=== PATIENT | male | born 1930 | race Caucasian/White ===

== ENCOUNTER 2016-12-05 19:40 | Inpatient (IN) | payer MEDICARE, OTHER ==
[~2016-12-05] VITALS: Ht 182.9 cm; Wt 81.6 kg
[2016-12-05 19:40] VITALS: BP 100/63
[~2016-12-05 19:40] MED LIST: ASPIRIN CHILDRE80 MG; BENAZEPRIL20 M1 PO; GLUCOTROL10 M1 PO; KEFLEX500 MG PO; TERAZOSIN5 MG PO; VIT B; ZANTAC 300300 M1 PO; benzapril; glipizide; metformin
--- NOTE | 2016-12-05 19:50 | NUR ---
86/M BIBA C/O GENERALIZED WEAKNESS AND LOW B/P FROM HOME. DENIES N/V/D; AAOX4 WITH EVEN AND STEADY GAIT; LUNGS CLEAR BL; HR EVEN AND REGULAR; PT DENIES ANY FEVER, CP, SOB, OR COUGH AT THIS TIME; PATIENT STATES PAIN OF 0/10 AT THIS TIME; VSS; PATIENT POSITIONED FOR COMFORT; HOB ELEVATED; BEDRAILS UP X2; BED DOWN. ER MD MADE AWARE OF PT STATUS.
--- NOTE | 2016-12-05 19:51 | NUR ---
BIBA TO ER BED 2
--- NOTE | 2016-12-05 19:55 | NUR ---
Patient being evaluated by physician at bedside.
[2016-12-05] MEDS ORDERED: NACL 0.9% 1,000 ML IV ONE ×2 (20:04)
--- NOTE | 2016-12-05 20:47 | NUR ---
pt can nt recall home meds/dose at this time.
[2016-12-05] MEDS ORDERED: PIPERACILLIN/TAZOBACTAM 3.375 GM in DEXTROSE 5% 50 ML IV ONE (20:55)
[2016-12-05] MEDS ORDERED: PIPERACILLIN/TAZOBACTAM 3.375 GM VIAL IV ONE (21:03)
--- NOTE | 2016-12-05 21:31 | NUR ---
# 14 FR Urinary catheter inserted utilizing sterile technique. Immediate return of 50 ml YELLOW CLEAR urine noted. Urine sample collected and sent to lab. Pt tolerated procedure well.
--- NOTE | 2016-12-05 21:46 | NUR ---
REASSESSMENT OF PT BLOOD PRESSURE AT THIS TIME IS 105/56. TEMPERATURE ALSO NOTED AT 98.7F. DENIES PAIN AND DISCOMFORT AT THIS TIME.
[2016-12-05] MEDS ORDERED: NACL 0.9% 500 ML IV ONE (21:50)
[2016-12-05] MEDS ORDERED: ONDANSETRON 4 MG/2 ML VIAL IVP PRN (23:00)
[2016-12-05] MEDS ORDERED: ACETAMINOPHEN 325 MG TAB PO PRN (23:00)
[2016-12-05] MEDS ORDERED: HYDROcodone/APAP 5/325 MG 1 TAB TAB PO PRN (23:00)
--- NOTE | 2016-12-05 23:00 | NUR ---
Patient will be admitted to care of Dr Richardson. Admited to Telemetry. Will go to room 124B. Belongings list completed. Report to Freddy Dawson RN .
--- NOTE | 2016-12-05 23:10 | NUR ---
Admitted from E.. with chief complaint of GENERALIZED WEAKNESS. AN 86 y/o. Male. ALERT AWAKE ORIENTED X3 WITH CONFUSION AT TIMES. INITIAL ASSESSMENT DONE. NO S/S OF RESPIRATORY DISTRESS OR SOB NOTED. NO C/O PAIN OR ANY DISCOMFORT AT THIS TIME. SKIN IS INTACT CLEAN DRY AND WARM TO TOUCH. OLD DRY SCAB NOTED ON THE RIGHT ELBOW. PLAN OF CARE REVIEWED TO PT AND VERBALIZED UNDERSTANDING AND NEED TO BE REINFORCED. oriented to call light, bed, phone,television, bathroom, smoking policy, visiting hours, procedures, ID bracelet on. Belongings list checked. CALL LIGHT WITHIN REACH. WILL CONTINUE TO MONITOR.
[2016-12-06] VITALS: BP 133/78
[2016-12-06] MEDS: NACL 0.9% 1,000 ML IV SCH ×3 (00:07→20:41)
--- NOTE | 2016-12-06 00:46 | NUR ---
PT IS SLEEPING RIGHT NOW BUT EASILY AROUSABLE. NO S/S OF ANY DISCOMFORT AT THIS TIME. ALL NEEDS ARE ATTENDED. CALL LIGHT WITHIN REACH. WILL CONTINUE TO MONITOR.
[2016-12-06 04:00] VITALS: BP 129/75
--- NOTE | 2016-12-06 05:45 | NUR ---
AM CARE RENDERED. BED LINEN CHANGED. INSTRUCTED PT TO REPOSITION. KEPT CLEAN AND DRY. CALL LIGHT WITHIN REACH. WILL CONTINUE TO MONITOR.
--- NOTE | 2016-12-06 07:30 | NUR ---
PT HAS NO S/S OF ANY DISCOMFORT. PLAN OF CARE ENDORSED TO KAYLA POLK AT BEDSIDE FOR CONTINUITY OF CARE.
--- NOTE | 2016-12-06 07:30 | NUR ---
RECEIVED PT RESTING COMFORTABLY IN BED; AAOX4, ABLE TO VERBALIZE NEEDS. PT DENIES ANY SOB, CP; NO S/S ACUTE DISTRESS AT THIS TIME. ROUTINE/PLAN OF CARE DISCUSSED AND REVIEWED, PT VERBALIZES UNDERSTANDING AND COMPLIANCE. IVF INFUSING WELL TO LEFT HAND, SITE ASYMPTOMATIC. SAFETY PRECAUTIONS OBSERVED AND MAINTAINED. CALL LIGHT IN REACH. WILL CONTINUE TO MONITOR.
[2016-12-06 08:00] VITALS: BP 141/78
[2016-12-06] MEDS ORDERED: DOCUSATE SODIUM 100 MG GELCAP PO SCH (09:00)
[2016-12-06] MEDS: SACCHAROMYCES 250 MG CAP PO SCH ×2 (09:08→20:31)
--- NOTE | 2016-12-06 09:10 | NUR ---
VSS. ADMINISTERED ROUTINE MEDS ORDERED WITH EDUCATION, PT TOLERATED WELL. MINIMAL ASSISTANCE WITH ADLs. WILL CONTINUE TO MONITOR.
[2016-12-06] MEDS ORDERED: MAG SULF 2000 MG/WATER PREMIX 50 ML IV SCH ×2 (09:19→14:43)
[2016-12-06] MEDS ORDERED: DEXTROSE 50% 50 ML SYR IVP PRN (09:45)
--- NOTE | 2016-12-06 10:05 | NUR ---
DISCUSSED PT CONDITION AND PLAN OF CARE WITH DR WATKINS AND DR GOMEZ, NEW ORDERS ACKNOWLEDGED AND CARRIED OUT. MARYCRUZER ADMINISTERED ORDERED WITH EDUCATION. FAMILY MEMBER AT BEDSIDE. WILL CONTINUE TO MONITOR.
[2016-12-06] MEDS: INSULIN ASPART SLIDING SCALE 100 UNITS/ML VIAL SUBQ PRN ×2 (11:37→21:14)
[2016-12-06] MEDS: BLOOD GLUCOSE MONITORING 1 DEV DEV FS SCH ×3 (11:37→20:41)
[2016-12-06 12:00] VITALS: BP 135/62
--- NOTE | 2016-12-06 12:00 | NUR ---
VSS. FAMILY MEMBER AT BEDSIDE. NO S/S DISTRESS
--- NOTE | 2016-12-06 14:00 | NUR ---
ASSISTED PT WITH GOWN AND LINEN CHANGE. CONDITION REMAINS STABLE. FAMILY MEMBERS AT BEDSIDE.
[2016-12-06] MEDS ORDERED: SKINTEGRITY HYDROGEL TP SCH (14:01)
[2016-12-06] MEDS ORDERED: LIPITOR40 MG PO (15:57)
[2016-12-06] MEDS ORDERED: CASODEX50 MG PO (15:57)
[2016-12-06] MEDS ORDERED: TERAZOSIN HCL PO (15:57)
[2016-12-06] MEDS ORDERED: ASPIR 8181 MG PO (15:57)
[2016-12-06] MEDS ORDERED: BENAZEPRIL HYDR20 MG PO (15:57)
[2016-12-06] MEDS ORDERED: RANITIDINE HCL300 M2 PO (15:57)
[2016-12-06] MEDS ORDERED: FLOMAX0.4 MG PO (15:57)
[2016-12-06 16:00] VITALS: BP 126/69
--- NOTE | 2016-12-06 16:29 | NUR ---
PT TAKEN TO CT VIA WHEELCHAIR AT THIS TIME IN STABLE CONDITION. Addendum: 12/06/16 at 1649 by Princess Koch RN ADD TO ENTRY: APAP PO GIVEN FOR C/O HEADACHE, SEE PAIN ASSESSMENT.
--- NOTE | 2016-12-06 16:45 | NUR ---
PT RETURNED FROM CT, REMAINS IN STABLE CONDITION.
--- NOTE | 2016-12-06 18:10 | NUR ---
[facility] CALLED IN RESULTS OF HEAD CT, NOTIFIED DR SELLERS, NO FURTHER ORDERS AT THIS TIME. PT IN STABLE CONDITION.
--- NOTE | 2016-12-06 19:19 | NUR ---
CONDITION REMAINS STABLE; ENDORSED PLAN OF CARE TO WEB PRODUCER RN.
--- NOTE | 2016-12-06 19:25 | NUR ---
RECEIVED REPORT FROM DAYSHIFT RN FOR CONTINUITY OF CARE. PATIENT IS A&OX3/4, FORGETFUL AT TIMES. SHIFT ASSESSMENT DONE, VS TAKEN. PATIENT IS STABLE. NO S/S OF RESPIRATORY DISTRESS NOTED ON ROOM AIR. PATIENT DENIES PAIN. IV TO LT HAND 18 GAUGE PATENT AND FLUSHED. URINAL AT BEDSIDE. PT HAS ABRASION TO RT ELBOW AND DIABETIC ULCER TO LT SECOND TOE. SAFETY/ FALL PRECAUTIONS ENFORCED. CALL LIGHT PLACED WITHIN REACH. WILL CONTINUE TO MONITOR.
[2016-12-06 19:58] VITALS: BP 144/61
[2016-12-06] MEDS: TAMSULOSIN 0.4 MG CAP PO SCH (20:31)
[2016-12-06] MEDS: DOCUSATE SODIUM 100 MG GELCAP PO SCH (20:31)
--- NOTE | 2016-12-06 20:31 | NUR ---
DUE MEDICATIONS ADMINISTERED, TOLERATED WELL. PATIENT UP TO USE RESTROOM, RETURNED TO BED AND MADE COMFORTABLE. CALL LIGHT WITHIN REACH.
--- NOTE | 2016-12-06 20:41 | NUR ---
PT REFUSING INSULIN PER MD ORDER, STATES THAT "HE DOESN'T WANT TO START INSULIN." EDUCATED PATIENT, STILL REFUSED. WILL FOLLOW UP WITH MD.
[2016-12-06] MEDS ORDERED: MAGNESIUM OXIDE 400 MG TAB PO SCH (21:00)
--- NOTE | 2016-12-06 21:15 | NUR ---
SPOKE WITH DR. GOMEZ REGARDING VENOUS/ARTERIAL DOPPLER RESULTS, MD TO GIVE ORDERS. ALSO INFORMED HER OF PT REFUSING INSULIN.
--- NOTE | 2016-12-06 21:30 | NUR ---
PT USED URINAL AND SPILLED SOME ON BED AND FLOOR, CLEANED UP PT AND CHANGED LINENS. CALL LIGHT WITHIN REACH.
[2016-12-06] MEDS ORDERED: HEPARIN PER PHARMACY MC PRN (23:05)
[2016-12-06] MEDS ORDERED: hePARIN / DEXT 5% PREMIX 250 ML IV SCH (23:05)
--- NOTE | 2016-12-06 23:56 | NUR ---
VS TAKEN, STABLE. EMPTIED 700 OUT OF URINAL.
[2016-12-07] VITALS: BP 120/56
--- NOTE | 2016-12-07 01:08 | NUR ---
INITIATED HEPARIN PROTOCOL PER MD ORDER.
--- NOTE | 2016-12-07 01:32 | NUR ---
PT GOT U TO USE URINAL, IV ACCIDENTLY DISLODGED CANNULA INTACT. NEW IV LINE INSERTION TO LT FOREARM 22 GAUGE PATENT AND NOW INFUSING HEPARIN DRIP.
[2016-12-07 04:00] VITALS: BP 153/79
--- NOTE | 2016-12-07 04:07 | NUR ---
VS TAKEN, STABLE. PT UP TO USE URINAL AND PERFORM AM CARE. BED LINENS AND GOWN CHANGED. CALL LIGHT WITHIN REACH.
[2016-12-07] MEDS: BLOOD GLUCOSE MONITORING 1 DEV DEV FS SCH ×4 (05:55→20:38)
--- NOTE | 2016-12-07 06:07 | NUR ---
BLOOD SUGAR 190, ADMINISTERED INSULIN PER MD ORDER.
[2016-12-07] MEDS: INSULIN ASPART SLIDING SCALE 100 UNITS/ML VIAL SUBQ PRN ×4 (06:10→21:54)
--- NOTE | 2016-12-07 07:30 | NUR ---
RECEIVED ON BED AAOX3-4 WITH PERIODS OF FORGETFULNESS. NO SOB NOTED, ON ROOM AIR WITH 97% O2 SATS. NO C/O PAIN AT THIS TIME. IV TO LT WRIST PATENT AND INTACT, HEPARIN DRIP ON GOING. PT ACCIDENTALLY PULLED OUT IV ON RT FOREARM. CHEST, DIMINISHED AIR ENTRY TO THE BASES. ABDOMEN SOFT, BOWEL SOUNDS PRESENT. PT AMBUALTORY TO THE BATHROOM WITH HELP. INSTRUCTED PT TO CALL FOR ASSISTANCE, CALL LIGHT WITHIN REACH, BED ALARM ON AND ON LOW POSITION. PT VERBALIZED PARTIAL UNDERSTANDING.
--- NOTE | 2016-12-07 07:34 | NUR ---
ENDORSED PATIENT TO ANIA RN FOR CONTINUITY OF CARE, PATIENT IS STABLE.
[2016-12-07 08:00] VITALS: BP 140/79
[2016-12-07] MEDS: BICALUTAMIDE 50 MG TAB PO SCH (09:00)
[2016-12-07] MEDS: BENAZEPRIL 20 MG TAB PO SCH (09:40)
[2016-12-07] MEDS: SACCHAROMYCES 250 MG CAP PO SCH ×2 (09:40→20:34)
[2016-12-07] MEDS: SKINTEGRITY HYDROGEL TP SCH (09:40)
[2016-12-07] MEDS: DOCUSATE SODIUM 100 MG GELCAP PO SCH ×2 (09:40→20:34)
[2016-12-07] MEDS: TERAZOSIN 5 MG CAP PO SCH (09:41)
[2016-12-07] MEDS: FAMOTIDINE 20 MG TAB PO SCH (09:41)
[2016-12-07] MEDS: MULTIVITAMIN/MINERALS 1 TAB PO SCH (09:41)
[2016-12-07] MEDS: ECOTRIN 81 MG TABEC PO SCH (09:41)
--- NOTE | 2016-12-07 09:47 | NUR ---
WOUND CARE NOTES: UNABLE TO SEE PATIENT AT THIS TIME, PODIATRY CHANGED THE DRESSING THIS MORNING. WILL FOLLOW UP.
--- NOTE | 2016-12-07 10:04 | NUR ---
PATIENT HAS BEEN SCREENED AND CATEGORIZED HIGH NUTRITION RISK. PATIENT WILL BE SEEN WITHIN 1-2 DAYS OF ADMISSION. 12/06/16-12/07/[address]
[2016-12-07 12:00] VITALS: BP 112/80
--- NOTE | 2016-12-07 12:15 | NUR ---
CM NOTE PER GEOSCIENCE PROFESSOR GERALDO EXT [id number], REVIEWS SHOULD ONLY BE SENT TO [facility] AND NOT TO [facility]. INITIAL REVIEW SENT TO [facility] FAX# [phone] ATTN: WINSTON MARCH # [phone]
[2016-12-07] MEDS: NACL 0.9% 1,000 ML IV SCH (12:27)
--- NOTE | 2016-12-07 14:56 | NUR ---
CM NOTE: SPOKE WITH GLORIA MARCH OF [facility] PH# [phone] AND SHE SAID SHE HAS SPOKEN WITH [facility] AND THAT [facility] WILL CALL PATIENT WHEN PATIENT IS DISCHARGED TO START PHYSICAL THERAPY, [facility] PH# [phone]. HOME HEALTH FOR PT AUTH# [id number]. GLORIA MARCH ALSO SAID THAT FWW WILL BE DELIVERED TO THE PATIENT IN THE HOSPITAL AROUND 1800 TIME TODAY TO BE DELIVERED BY [facility] PH# [phone], FWW AUTH# [id number]. CHARGE NURSE DARNELL ACUNA 3017 AWARE.
--- NOTE | 2016-12-07 15:24 | NUR ---
12/07/16 RD INITIAL ASSESSMENT COMPLETED PLEASE REFER TO NUTRITION ASSESSMENT UNDER CARE ACTIVITY FOR ESTIMATED NUTRITIONAL NEEDS. RD RECOMMENDATIONS: 1. CONTINUE CCHO 60 GM MECHANICAL SOFT DIET TOLERATED PER MD 2. RD TO ADD DIET HEALTH SHAKES TID FOR ADDITIONAL 600 KCAL AND 21 GM PROTEIN TO HELP PT MEET ESTIMATED KCAL AND PROTEIN NEEDS 3. ENCOURAGE INCREASED PO INTAKES 4. RD WILL F/U 3-5 DAYS; MODERATE RISK. ABDOUL HENDERSON RD
[2016-12-07 16:00] VITALS: BP 152/92
--- NOTE | 2016-12-07 16:29 | NUR ---
FWW DELIVERED AT BEDSIDE.
[2016-12-07] MEDS: RIVAROXABAN 15 MG TAB PO SCH (18:16)
--- NOTE | 2016-12-07 18:16 | NUR ---
HEPARIN DRIP DISCONTINUED ORDERED. XARELTO PO GIVEN.
--- NOTE | 2016-12-07 19:00 | NUR ---
PT AWAKE. NO SOB NOTED. NO COMPLAINTS MADE. ENDORSED TO NEXT SHIFT NURSE FOR CONTINUITY OF CARE.
--- NOTE | 2016-12-07 19:34 | NUR ---
RECEIVED REPORT FROM ANIA POLK FOR CONTINUITY OF CARE. PATIENT IS A&OX3, FORGETFUL, BUT CURRENTLY AWAKE AND EATING DINNER, GOOD APPETITE. SHIFT ASSESSMENT DONE, VS TAKEN. PATIENT IS STABLE AT THIS TIME. NO S/S OF RESPIRATORY DISTRESS NOTED ON ROOM AIR. PATIENT STATES TOLERABLE HEADACHE AT THIS TIME. IV TO LT HAND 22 GAUGE GAUGE PATENT AND FLUSHED AND IV TO LT FA 22 GAUGE PATENT AND INFUSING FLUIDS WELL. URINAL AT BEDSIDE. PT HAS ABRASION TO RT ELBOW AND DIABETIC ULCER TO LT SECOND TOE, DRESSING INTACT. SAFETY/ FALL PRECAUTIONS ENFORCED, WALKER AT BEDSIDE. CALL LIGHT PLACED WITHIN REACH. WILL CONTINUE TO MONITOR.
[2016-12-07 20:00] VITALS: BP 98/53
[2016-12-07] MEDS: TAMSULOSIN 0.4 MG CAP PO SCH (20:34)
--- NOTE | 2016-12-07 20:38 | NUR ---
BLOOD SUGAR 192, WILL ADMINISTER INSULIN PER MD ORDER. DUE MEDS GIVEN, TOLERATED WELL.
--- NOTE | 2016-12-07 21:54 | NUR ---
INSULIN GIVEN PER MD ORDER, PATIENT IS NOW SLEEPING. CALL LIGHT WITHIN REACH.
--- NOTE | 2016-12-07 23:52 | NUR ---
VS TAKEN, STABLE. PT UP TO USE BATHROOM. NOW BACK IN BED SLEEPING. NO S/S OF DISTRESS NOTED.
[2016-12-08] VITALS: BP 136/91
[2016-12-08] MEDS: NACL 0.9% 1,000 ML IV SCH ×2 (00:52→12:23)
--- NOTE | 2016-12-08 01:54 | NUR ---
PT USED URINAL, 300 ML OUTPUT. CALL LIGHT WITHIN REACH.
[2016-12-08 04:00] VITALS: BP 156/85
--- NOTE | 2016-12-08 04:15 | NUR ---
VS TAKEN, STABLE. PT IS SLEEPING. NO S/S OF DISTRESS OR DISCOMFORT NOTED. CALL LIGHT PLACED WITHIN REACH.
[2016-12-08] MEDS: BLOOD GLUCOSE MONITORING 1 DEV DEV FS SCH ×3 (06:15→16:38)
--- NOTE | 2016-12-08 06:16 | NUR ---
BLOOD SUGAR TAKEN, 169, WILL ADMINISTER INSULIN PER MD ORDER.
[2016-12-08] MEDS: INSULIN ASPART SLIDING SCALE 100 UNITS/ML VIAL SUBQ PRN ×3 (06:42→18:07)
--- NOTE | 2016-12-08 07:14 | NUR ---
RECEIVED REPORT FROM NIGHT NURSE , PT IS AAOX3, IV TO LEFT FA 22G WITH NS AT 80 ML/HR INFUSING WELL, LEFT HAND 22G SALINE LOCK PATENT AND INTACT , LEFT SECOND TOE DIABETIC ULCER, RIGHT ELBOW ABRASION , INITIAL ASSESSMENT COMPLETES, REVIEWED PLAN OF CAR WITH PT, PT VERBALIZED UNDERSTANDING, ORIENTED PT TO ROOM AND ENVIRONMENT, CALL LIGHT WITHIN REACH, WILL CONTINUE TO MONITOR.
--- NOTE | 2016-12-08 07:14 | NUR ---
ENDORSED PATIENT TO DAYSHIFT RN FOR CONTINUITY OF CARE. PATIENT IS STABLE
[2016-12-08 08:00] VITALS: BP 140/63
[2016-12-08] MEDS: RIVAROXABAN 15 MG TAB PO SCH ×2 (08:53→16:37)
[2016-12-08] MEDS: TERAZOSIN 5 MG CAP PO SCH (08:54)
[2016-12-08] MEDS: ECOTRIN 81 MG TABEC PO SCH (08:54)
[2016-12-08] MEDS: BENAZEPRIL 20 MG TAB PO SCH (08:54)
[2016-12-08] MEDS: DOCUSATE SODIUM 100 MG GELCAP PO SCH (08:54)
[2016-12-08] MEDS: MULTIVITAMIN/MINERALS 1 TAB PO SCH (08:54)
[2016-12-08] MEDS: SACCHAROMYCES 250 MG CAP PO SCH (08:54)
--- NOTE | 2016-12-08 08:57 | NUR ---
DUE MEDICATIONS GIVEN, PT TOLERATED. PT CURRENTLY SITTING IN BED, CALL LIGHT WITHIN REACH. WILL CONTINUE TO MONITOR.
[2016-12-08] MEDS: BICALUTAMIDE 50 MG TAB PO SCH (08:59)
[2016-12-08] MEDS: SKINTEGRITY HYDROGEL TP SCH (09:03)
[2016-12-08] MEDS: FAMOTIDINE 20 MG TAB PO SCH (09:09)
--- NOTE | 2016-12-08 10:56 | NUR ---
CM NOTE CONCURRENT REVIEW SENT TO [facility] FAX# [phone] ATTN: WINSTON MARCH PH# [phone]
--- NOTE | 2016-12-08 11:15 | NUR ---
CHECKED IN ON PT PT CURRENTLY SLEEPING, NO S/S OF DISTRESS OR DISCOMFORT NOTE. CALL LIGHT WITHIN REACH. WILL CONTINUE TO MONITOR.
[2016-12-08 12:00] VITALS: BP 128/70
--- NOTE | 2016-12-08 12:28 | NUR ---
PT CURRENTLY HAVING LUNCH, SON AT BEDSIDE. CALL LIGHT WITHIN REACH. WILL CONTINUE TO MONITOR.
--- NOTE | 2016-12-08 14:01 | NUR ---
CHECKED IN ON PT. PT CURRENTLY VISITING WITH FAMILY. CALL LIGHT WITHIN REACH. WILL CONTINUE TO MONITOR.
[2016-12-08 16:00] VITALS: BP 114/57
--- NOTE | 2016-12-08 16:41 | NUR ---
DUE MEDICATIONS GIVEN. PT RESTING IN BED. ALL NEEDS MET, CALL LIGHT WITHIN REACH.
[2016-12-08] MEDS ORDERED: XARELTO20 MG PO (16:47)
[2016-12-08] MEDS ORDERED: XARELTO15 MG PO (16:47)
--- NOTE | 2016-12-08 17:41 | NUR ---
PT WAS STRAIGHT CATHETERIZED WITH 700ML OF YELLOW CLEAR URINE. PT TOLERATED WELL. MD NOTIFIED. DISCUSSED DISCHARGED PLAN WITH PT PT VERBALIZED UNDERSTANDING.
--- NOTE | 2016-12-08 18:02 | NUR ---
STEPHEN CATHETER WAS INSERTED PER MD ORDERS. PT WILL BE DISCHARGE WITH IT HOME. EDUCATED PT ON STEPHEN, PT VERBALIZED UNDERSTANDING.
--- NOTE | 2016-12-08 18:50 | NUR ---
PT SIGNED ALL DISCHARGE PAPERWORK, NEW PRESCRIPTION AND EDUCATED GIVEN, PT VERBALIZED UNDERSTANDING.WOUND PICTURES TAKEN. PT WAS DISCHARGED HOME WITH A STEPHEN CATHETER EDUCATION GIVEN TO PT AND BOTH VERBALIZED UNDERSTANDING. IVS REMOVED TIP INTACT, ALL ID BANDS REMOVED. ALL PERSONAL BELONGING WITH PT.
--- NOTE | 2016-12-08 19:00 | NUR ---
PT WAS WHEELED OUT TO FRONT LOBBY IN STABLE CONDITION
[2017-03-16] MEDS ORDERED: VANCOMYCIN1 GM/1001 IV (10:10)
[2017-03-18] MEDS ORDERED: LEVAQUIN750 MG PO (15:30)
[2017-03-18] MEDS ORDERED: BD LACTINEX1.4 MG PO (15:30)
[2017-03-18] MEDS ORDERED: CLEOCIN HCL300 MG PO (15:31)
== END 2016-12-08 19:00 | disposition home health service (06) | DRG 901 ==
LOC: MED 19:40 → MERGE 22:20 → MTU 22:20
PROVIDERS: ADMIT Student in an Organized Health Care Education/Training Program; ATTEND Student in an Organized Health Care Education/Training Program
PROC: 0JBR0ZZ Excision of Left Foot Subcutaneous Tissue and Fascia, Open Approach (ICD-10-PCS; principal; 2016-12-06)
DX: T46.5X1A Poisoning by other antihypertensive drugs, accidental (unintentional), initial encounter (principal); E43 Unspecified severe protein-calorie malnutrition; N39.0 Urinary tract infection, site not specified; Q25.46 Tortuous aortic arch; N13.30 Unspecified hydronephrosis; I82.411 Acute embolism and thrombosis of right femoral vein; G90.9 Disorder of the autonomic nervous system, unspecified; E11.621 Type 2 diabetes mellitus with foot ulcer; I95.89 Other hypotension; E83.42 Hypomagnesemia; E11.65 Type 2 diabetes mellitus with hyperglycemia; M20.42 Other hammer toe(s) (acquired), left foot; J32.2 Chronic ethmoidal sinusitis; E87.8 Other disorders of electrolyte and fluid balance, not elsewhere classified; E78.5 Hyperlipidemia, unspecified; K21.9 Gastro-esophageal reflux disease without esophagitis; I10 Essential (primary) hypertension; E02 Subclinical iodine-deficiency hypothyroidism; E11.51 Type 2 diabetes mellitus with diabetic peripheral angiopathy without gangrene; E83.51 Hypocalcemia; L97.529 Non-pressure chronic ulcer of other part of left foot with unspecified severity; I35.0 Nonrheumatic aortic (valve) stenosis; R31.9 Hematuria, unspecified; N32.0 Bladder-neck obstruction; Z79.899 Other long term (current) drug therapy; Z68.24 Body mass index [BMI] 24.0-24.9, adult; Z86.73 Personal history of transient ischemic attack (TIA), and cerebral infarction without residual deficits; Z85.46 Personal history of malignant neoplasm of prostate

== ENCOUNTER 2017-01-13 09:30 | Inpatient (IN) | payer OTHER ==
[~2017-01-13] VITALS: Ht 188 cm; Wt 98.9 kg
[~2017-01-13 09:30] MED LIST changes: +ASPIR 8181 MG PO; +BENAZEPRIL HYDR20 MG PO; +CASODEX50 MG PO; +FLOMAX0.4 MG PO; +LIPITOR40 MG PO; +RANITIDINE HCL300 M2 PO; +TERAZOSIN HCL PO; +XARELTO15 MG PO; +XARELTO20 MG PO
--- NOTE | 2017-01-13 09:30 | NUR ---
PATIENT BIBA TO ER BED 4.
[2017-01-13 09:52] VITALS: BP 188/57
--- NOTE | 2017-01-13 10:02 | NUR ---
86/M BIBA FROM HOME S/P FALL. C/O PAIN TO LOWER BACK. NO LOC. PAIN 06/10. LUNGS CLEAR BILAT. HR EVEN AND REGULAR. AAOX4. VSS. NO SIGNS OF DISTRESS.
[2017-01-13] MEDS ORDERED: fentaNYL 0.05 MG/ML VIAL IM ONE (10:05)
--- NOTE | 2017-01-13 10:05 | NUR ---
Patient being evaluated by physician at bedside.
[2017-01-13] MEDS ORDERED: NACL 0.9% 1,000 ML IV ONE (11:00)
[2017-01-13] MEDS ORDERED: POTASSIUM CHLORIDE 10 MEQ TABER PO ONE (11:00)
[2017-01-13] MEDS ORDERED: cefTRIAXone 1,000 MG VIAL ONE (11:38)
--- NOTE | 2017-01-13 12:36 | NUR ---
Patient will be admitted to care of DR MOLINA. Admited to MED SURG. Will go to room 107B. Belongings list completed. Report to KELI.
[2017-01-13 13:00] VITALS: BP 149/76
--- NOTE | 2017-01-13 13:00 | NUR ---
PATIENT ARRIVED FROM THE ER VIA GURNEY. PATIENT AWAKE, ALERT, ORIENTED AND AMBULATORY. PATIENTS STATES THAT HE USES A WALKER AT HOME. NO S/S OF DISTRESS NOTED. NO SOB. PATIENT BREATHING ON ROOM AIR. SKIN TEAR NOTED TO RIGHT AND LEFT FOREARM. IV LINE NOTED TO LEFT FOREARM. BED LOWERED WITH CALL LIGHT WITHIN REACH. WILL CONTINUE TO MONITOR
[2017-01-13] MEDS ORDERED: PNEUMOCOCCAL VACCINE 23 MCG/0.5 ML VIAL IMVAC PRN (13:30)
--- NOTE | 2017-01-13 14:35 | NUR ---
PT CURRENTLY SLEEPING. NO S/S OF DISTRESS OR DISCOMFORT NOTED. CALL LIGHT WITHIN REACH. WILL CONTINUE TO MONITOR.
[2017-01-13] MEDS ORDERED: MORPHINE SULFATE 2 MG/ML SYR IVP PRN (15:15)
[2017-01-13] MEDS ORDERED: MORPHINE SULFATE 4 MG/ML SYR IVP PRN (15:15)
[2017-01-13] MEDS ORDERED: ONDANSETRON 4 MG/2 ML VIAL IVP PRN (15:15)
[2017-01-13 16:00] VITALS: BP 135/68
--- NOTE | 2017-01-13 16:45 | NUR ---
CHECKED IN ON PT. ALL NEEDS MET. SON AT BEDSIDE. WILL CONTINUE TO MONITOR.
[2017-01-13] MEDS: BLOOD GLUCOSE MONITORING 1 DEV DEV FS SCH ×3 (16:55→20:46)
[2017-01-13] MEDS: INSULIN LISPRO SLIDING SCALE 100 UNITS/ML VIAL SUBQ PRN ×2 (17:52→20:43)
--- NOTE | 2017-01-13 19:10 | NUR ---
RECEIVED REPORT FROM FELICITAS ROCHE AT BEDSIDE. INITIAL ASSESSMENT COMPLETED. PT AAOX4. GENERALIZED WEAKNESS NOTICED. PT HAS IV TO LEFT HAND G 20 SL; ASYMPTOMATIC, PATENT AND INTACT. PT HAS A SKIN TEAR ON LEFT ARM COVERED WITH VERSATIL. ORIENTED PT TO ROOM AND SURROUNDINGS AND USE OF CALL LIGHT. SAFETY/FALL RISKS MEASURES IN PLACE. WILL CONTINUE TO MONITOR PT. BED ALARM ON.
--- NOTE | 2017-01-13 19:30 | NUR ---
ENDORSED PLAN OF CARE TO NIGHT NURSE. PT IN STABLE CONDITION.
[2017-01-13] MEDS: FAMOTIDINE 20 MG TAB PO SCH (20:36)
[2017-01-13] MEDS: ATORVASTATIN 20 MG TAB PO SCH (20:37)
--- NOTE | 2017-01-13 20:50 | NUR ---
PT TOLERATED 2100 MEDS WELL. PT STABLE. PT HAS SCDS ON. WILL CONTINUE TO MONITOR PT.
[2017-01-13] MEDS ORDERED: TAMSULOSIN 0.4 MG CAP PO SCH (21:00)
[2017-01-14] VITALS: BP 139/72
--- NOTE | 2017-01-14 00:15 | NUR ---
PT TAKEN FOR CT OF SPINE. PT STABLE.
--- NOTE | 2017-01-14 00:50 | NUR ---
PT BACK, PT RESTING IN BED COMFORTABLY. BED ALARM ON.
--- NOTE | 2017-01-14 02:30 | NUR ---
PT SLEEPING AT THIS TIME. NO SIGNS OF DISTRESS/DISCOMFORT NOTED. WILL CONTINUE TO MONITOR PT.
--- NOTE | 2017-01-14 03:50 | NUR ---
PT REQUESTING URINAL. PT VOIDED, PT BACK IN BED NOW. NO SIGNS OF DISCOMFORT NOTED. WILL CONTINUE TO MONITOR PT.
--- NOTE | 2017-01-14 05:40 | NUR ---
PT AWAKE, PT STATED THAT HE WANTS TO TAKE A BREAK FROM USING THE SCDS. WILL CONTINUE TO MONITOR PT.
--- NOTE | 2017-01-14 07:05 | NUR ---
ENDORSED PT IN STABLE CONDITION TO RN MICHELLE FOR CONTINUITY OF CARE.
--- NOTE | 2017-01-14 07:06 | NUR ---
PT ALERT AND RESPONSIVE X2 WITH PERIODS OF FORGETFULNESS. WITH O2 AT 2L/MIN VIA NC. NO SIGNS OF ACUTE DISTRESS. SKIN IS WARM AND DRY. NO SIGNS OF ANY GI DISCOMFORT. 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 ASSISTED ON URINARY FREQUENCY, KEPT CLEAN AND DRY. DENIES OF ANY PAIN AT THIS TIME. ALL NEEDS ATTENDED. CALL LIGHT WITHIN REACH.
[2017-01-14 08:00] VITALS: BP 128/66
[2017-01-14] MEDS: ECOTRIN 81 MG TABEC PO SCH (08:55)
[2017-01-14] MEDS: FAMOTIDINE 20 MG TAB PO SCH ×2 (08:56→20:30)
[2017-01-14] MEDS ORDERED: NON-FORMULARY ITEM (Ranitidine HCl (Zantac) 1 TAB) PO SCH (09:00)
[2017-01-14] MEDS ORDERED: TERAZOSIN 5 MG CAP PO SCH (09:00)
[2017-01-14] MEDS ORDERED: BENAZEPRIL 20 MG TAB PO SCH (09:00)
[2017-01-14] MEDS: BICALUTAMIDE 50 MG TAB PO SCH (09:01)
[2017-01-14] MEDS: RIVAROXABAN 10 MG TAB PO SCH (09:01)
--- NOTE | 2017-01-14 09:05 | NUR ---
PATIENT HAS BEEN SCREENED AND CATEGORIZED MODERATE NUTRITION RISK. PATIENT WILL BE SEEN WITHIN 3-5 DAYS OF ADMISSION. 01/16/17-01/18/[address]
--- NOTE | 2017-01-14 10:28 | NUR ---
CM NOTE INITIAL REVIEW FAXED TO [facility] / FAX# [phone], ATTN: WINSTON #[phone]
[2017-01-14] MEDS: BLOOD GLUCOSE MONITORING 1 DEV DEV FS SCH ×3 (10:34→20:36)
[2017-01-14] MEDS: INSULIN LISPRO SLIDING SCALE 100 UNITS/ML VIAL SUBQ PRN ×3 (10:36→20:38)
[2017-01-14] MEDS: ACETAMINOPHEN 325 MG TAB PO PRN (14:23)
[2017-01-14 15:22] VITALS: BP 88/48
--- NOTE | 2017-01-14 15:22 | NUR ---
NOTED PT'S BP DECREASED TO 70/42 LEFT ARM, RECHECKED ON THE RIGHT ARM BP 88/48. REPORTED TO DR. MOLINA, NEW ORDERS. RECEIVED. D/C ALL BP MEDS. START ON 1L BOLUS NS X1. NOTED AND CARRIED OUT.
[2017-01-14] MEDS ORDERED: NACL 0.9% 1,000 ML IV SCH (15:25)
--- NOTE | 2017-01-14 15:39 | NUR ---
ADDITIONAL ORDERS RECEIVED FROM DR. MOLINA, INSERT FC, LABS AND IMAGING TESTS. NOTED AND CARRIED OUT.
--- NOTE | 2017-01-14 16:00 | NUR ---
SS NOTE: I WAS INFORMED BY WALLACE SANTAMARIA THAT PT'S FAMILY WANTED TO SPEAK WITH ME. I MET WITH PT'S SON, KRUNAL MEAD ([phone]) AND PT'S , DAYANA. THEY STATED THAT THEY WOULD LIKE SNF PLACEMENT FOR PT DUE TO HIS FALLS AT HOME. I INFORMED THEM THAT PT WOULD HAVE TO HAVE A SKILLED NEED TO BE PLACED IN SHORT TERM SNF, THEY VERBALIZED UNDERSTANDING. KRUNAL ALSO STATED THAT PT WAS IN THE [facility] FOR 16 YEARS, I ADVISED HIM TO FOLLOW UP WITH [employer] TO SEE IF PT HAS ADDITIONAL BENEFITS WITH THEM. I ALSO ADVISED HIM TO APPLY FOR MEDI-MARY FOR PT IN CASE HE NEEDS RETIREMENT SNF PLACEMENT AND PROVIDED HIM WITH THE INFORMATION TO THE LOCAL MEDI-MARY OFFICE. HE REPORTED THAT PT WAS GETTING HIS CHEMO SHOTS ONCE EVERY 3 MONTHS AND IS NOW GETTING THEM ONCE EVERY 6 MONTHS. Addendum: 01/15/17 at 1116 by Yareli Miller SS CORRECTION: I WAS INFORMED BY FELICITAS MARTINEZ
--- NOTE | 2017-01-14 16:03 | NUR ---
PLACED STEPHEN CATHETER AND OBTAINED 150ML OF CLOUDY YELLOW URINE. CONTINUE TO MONITOR.
[2017-01-14 16:18] VITALS: BP 107/43
--- NOTE | 2017-01-14 16:18 | NUR ---
NOTED PT'S BP INCREASED TO 107/43. PT IS AWAKE ALERT AND RESPONSIVE, NO SIGNS OF ACUTE DISTRESS. DENIES OF ANY PAIN AT THSI TIME. CONTINUE TO MONITOR.
--- NOTE | 2017-01-14 18:52 | NUR ---
PT ALERT AND RESPONSIVE, NO SIGNS OF ACUTE DISTRESS. WILL ENDORSE TO ONCOMING CARBIDE TOOL MAKER NURSE FOR CONTINUITY OF CARE.
--- NOTE | 2017-01-14 19:26 | NUR ---
RECEIVED REPORT FROM MICHELLE RN FOR CONTINUITY OF CARE. PATIENT IS A&OX3, DISCUSSED PLAN OF CARE WITH PATIENT, VERBALIZED UNDERSTANDING. SHIFT ASSESSMENT DONE, VS TAKEN, STABLE. B/P 104/54. NO S/S OF RESPIRATORY DISTRESS NOTED ON ROOM AIR. PATIENT DENIES PAIN. LT ARM SKIN TEAR COVERED WITH DRY AND INTACT DRESSING. IV TO LT HAND 20 GAUGE PATENT AND FLUSHED. STEPHEN CATHETER IN PLACE DRAINING TO GRAVITY. SAFETY/FALL PRECAUTIONS ENFORCED. CALL LIGHT PLACED WITHIN REACH. FAMILY MEMBERS AT THE BEDSIDE, WILL CONTINUE TO MONITOR.
[2017-01-14 20:00] VITALS: BP 104/54
[2017-01-14] MEDS: ATORVASTATIN 20 MG TAB PO SCH (20:30)
--- NOTE | 2017-01-14 20:38 | NUR ---
DUE MEDICATIONS ADMINISTERED, TOLERATED WELL. BLOOD SUGAR 200, ADMINISTERED INSULIN PER MD ORDER. ASSISTED PATIENT TO REPOSITION SELF AND MADE COMFORTABLE. CALL LIGHT WITHIN REACH.
--- NOTE | 2017-01-14 23:56 | NUR ---
VS TAKEN, STABLE. PROVIDED PATIENT WITH BLANKET AND MADE COMFORTABLE.
[2017-01-15] VITALS: BP 127/67
--- NOTE | 2017-01-15 02:19 | NUR ---
EMPTIED STEPHEN BAG, 600 ML CLEAR CHINEDU URINE NOTED. PT IS SLEEPING. NO S/S OF DISTRESS OR DISCOMFORT NOTED. WILL CONTINUE TO MONITOR. Addendum: 01/15/17 at 0420 by Amy Lizarraga RN URINE IS CLOUDY.
--- NOTE | 2017-01-15 04:10 | NUR ---
EMPTIED STEPHEN CATHETER, 1100 ML URINE. PATIENT IS NOW SLEEPING, EASILY WAKES UP. CALL LIGHT WITHIN REACH.
--- NOTE | 2017-01-15 06:05 | NUR ---
PATIENT IS SLEEPING. NO S/S OF DISTRESS OR DISCOMFORT NOTED. WILL CONTINUE TO MONITOR.
[2017-01-15] MEDS: BLOOD GLUCOSE MONITORING 1 DEV DEV FS SCH ×4 (06:47→22:05)
[2017-01-15] MEDS: INSULIN LISPRO SLIDING SCALE 100 UNITS/ML VIAL SUBQ PRN ×3 (06:55→22:24)
--- NOTE | 2017-01-15 07:23 | NUR ---
ENDORSED PATIENT TO DIYA POLK FOR CONTINUITY OF CARE, PATIENT IS IN STABLE CONDITION.
[2017-01-15 08:00] VITALS: BP 86/43
[2017-01-15] MEDS: FAMOTIDINE 20 MG TAB PO SCH ×2 (09:23→21:58)
[2017-01-15] MEDS: ECOTRIN 81 MG TABEC PO SCH (09:23)
[2017-01-15] MEDS: BICALUTAMIDE 50 MG TAB PO SCH (09:23)
[2017-01-15] MEDS: RIVAROXABAN 10 MG TAB PO SCH (09:24)
--- NOTE | 2017-01-15 09:30 | NUR ---
ADMINISTERED ALL MORNING MEDS. PT TOLERATED IT WELL. NO COMPLAINTS AT THIS TIME. WILL CONTINUE TO MONITOR PT.
--- NOTE | 2017-01-15 12:00 | NUR ---
PT IS VISITING WITH SONS. LUNCH CAME. DIDN'T WANT FISH. ORDERED A TURKEY SANDWICH FOR PT. WILL CONTINUE TO MONITOR PT.
--- NOTE | 2017-01-15 12:02 | NUR ---
FAXED CONCURRENT REVIEW TO [facility] [phone] PHONE WINSTON [phone] PATRICIA [id number] Addendum: 01/15/17 at 1210 by Janette Montanez CM CORRECTION, FAXED TO [facility] [place].
--- NOTE | 2017-01-15 13:51 | NUR ---
PT IN THE RESTROOM. SON WAITING OUTSIDE THE DOOR. WILL CONTINUE TO MONITOR PT.
--- NOTE | 2017-01-15 14:00 | NUR ---
THE NUCLEAR MED NURSE CAME AND TOOK PT TO HAVE HIS BONE SCAN DONE. PROX TIME ABOUT 30-1HR. THE SONS LEFT.WOULD LIKE FOR ME TO CALL THEM WHEN PT GETS BACK. WILL DO.
--- NOTE | 2017-01-15 14:45 | NUR ---
PT BACK ON FLOOR. PT TOLERATED PROCEDURE WELL. CALLED THE SON TO LET HIM KNOW PT IS BACK. WILL CONTINUE TO MONITOR PT.
[2017-01-15 16:00] VITALS: BP 119/67
[2017-01-15] MEDS ORDERED: NACL 0.9% 1,000 ML IV SCH (16:05)
--- NOTE | 2017-01-15 16:20 | NUR ---
DR. MOLINA CAME AND SAW PT. ORDERED NS 1000MG BOLUS. NOT URINATING ENOUGH. ADMINISTERED AND WILL CONTINUE TO MONITOR HIM.
--- NOTE | 2017-01-15 17:00 | NUR ---
FAMILY VISITING W/ PATIENT. PT HAS NO COMPLAINTS. WILL CONTINUE TO MONITOR PT.
--- NOTE | 2017-01-15 19:15 | NUR ---
PT IS LYING IN POSITION. ALL FAMILY IS GONE. PT IS FEELING EMOTIONAL, OVERWHELMED. REMINDED HIM HE IS GOING HOME TOMORROW ONCE CULTURE SENSITIVITY RESULTS COME IN. ASSISTED HIM BACK TO NORMAL POSITION. ENDORSED PT TO THE NIGHTSHIFT NURSE IN STABLE CONDITION.
--- NOTE | 2017-01-15 19:16 | NUR ---
RECEIVED REPORT FROM DIYA POLK FOR CONTINUITY OF CARE. PATIENT IS A&OX3, DISCUSSED PLAN OF CARE WITH PATIENT AND SON AT BEDSIDE, ABLE TO VERBALIZE UNDERSTANDING. SHIFT ASSESSMENT DONE, VS TAKEN, STABLE. NO S/S OF RESPIRATORY DISTRESS ON ROOM AIR. PATIENT DENIES PAIN AT THIS TIME. LT ARM SKIN TEAR COVERED WITH DRESSING. IV TO LT HAND 20 GAUGE PATENT AND FLUSHED. STEPHEN CATHETER IN PLACE DRAINING CLOUDY YELLOW URINE TO GRAVITY. SAFETY/FALL PRECAUTIONS ENFORCED. BED ALARM ON AND PATIENT INSTRUCTED TO CALL FOR ASSISTANCE. PT REFUSED SCDS AT THIS TIME. FAMILY MEMBERS AT THE BEDSIDE. WILL CONTINUE TO MONITOR.
[2017-01-15 20:00] VITALS: BP 140/81
[2017-01-15] MEDS: ATORVASTATIN 20 MG TAB PO SCH (21:58)
--- NOTE | 2017-01-15 21:58 | NUR ---
DUE MEDICATIONS ADMINISTERED, TOLERATED WELL. BLOOD SUGAR 261, WILL ADMINISTER INSULIN. CHANGED DRESSING TO IV AND REINFORCED. CALL LIGHT WITHIN REACH.
--- NOTE | 2017-01-15 22:24 | NUR ---
INSULIN ADMINISTERED. REPOSITIONED PATIENT FOR COMFORT. CALL LIGHT WITHIN REACH.
[2017-01-16] VITALS: BP 142/76
--- NOTE | 2017-01-16 00:06 | NUR ---
VS TAKEN, STABLE. PATIENT DENIES PAIN. NO S/S OF DISTRESS NOTED. WILL CONTINUE TO MONITOR.
--- NOTE | 2017-01-16 02:00 | NUR ---
ASSISTED PATIENT TO REPOSITION HIMSELF IN BED. PATIENT IS NOW SLEEPING, NO S/S OF DISTRESS NOTED.
--- NOTE | 2017-01-16 03:58 | NUR ---
REPOSITIONED AND PROVIDED PATIENT WITH NEW LINENS. PT IS AWAKE WATCHING TV. CALL LIGHT WITHIN REACH.
--- NOTE | 2017-01-16 05:59 | NUR ---
BLOOD SUGAR 145, NO INSULIN COVERAGE NEEDED. PATIENT EXPRESSED THAT HE FEELS SAD, SAT AND TALKED WITH PATIENT. WILL CONTINUE TO MONITOR.
[2017-01-16] MEDS: BLOOD GLUCOSE MONITORING 1 DEV DEV FS SCH ×3 (06:30→16:32)
--- NOTE | 2017-01-16 07:15 | NUR ---
RECEIVED PATIENT REPORT AT BEDSIDE. PATIENT ASLEEP BUT EASILY AROUSABLE. NO S/S OF DISTRESS NOTED. STEPHEN CATHETER IN PLACE, DRAINING CLEAR YELLOW URINE. IV LINE NOTED TO THE LEFT HAND SALINE LOCKED. BED LOWERED WITH CALL LIGHT WITHIN REACH. WILL CONTINUE TO MONITOR
--- NOTE | 2017-01-16 07:24 | NUR ---
ENDORSED PATIENT TO KELI RN FOR CONTINUITY OF CARE, PATIENT IS IN STABLE CONDITION.
[2017-01-16 08:00] VITALS: BP 134/65
[2017-01-16] MEDS: ECOTRIN 81 MG TABEC PO SCH (08:59)
[2017-01-16] MEDS: FAMOTIDINE 20 MG TAB PO SCH (09:00)
[2017-01-16] MEDS: BICALUTAMIDE 50 MG TAB PO SCH (09:00)
[2017-01-16] MEDS: RIVAROXABAN 10 MG TAB PO SCH (09:01)
--- NOTE | 2017-01-16 10:57 | NUR ---
PATIENT RESTING COMFORTABLY IN BED. PATIENT'S SON PRESENT AT BEDSIDE. NO S/S OF DISTRESS NOTED
[2017-01-16] MEDS: INSULIN LISPRO SLIDING SCALE 100 UNITS/ML VIAL SUBQ PRN ×2 (11:51→17:43)
--- NOTE | 2017-01-16 15:52 | NUR ---
STEPHEN CATHETER DISCONTINUED. 250ML OF CLEAR YELLOW URINE OUTPUT NOTED. PATIENT TOLERATED WELL
[2017-01-16 16:00] VITALS: BP 114/69
[2017-01-16] MEDS ORDERED: KEFLEX250 MG PO (16:38)
--- NOTE | 2017-01-16 17:30 | NUR ---
PATIENT AMBULATED TO THE BATHROOM TO HAVE A BOWEL MOVEMENT
[2017-01-16] MEDS: ACETAMINOPHEN 325 MG TAB PO PRN (17:36)
--- NOTE | 2017-01-16 18:42 | NUR ---
PATIENT DISCHARGED TO HOME. DISCHARGE INSTRUCTIONS AND DISCHARGE PRESCRIPTIONS GIVEN. PATIENT VERBALIZED UNDERSTANDING. IV LINE DISCONTINUED. PATIENT LEFT WITH ALL HIS BELONGINGS AND DISCHARGE PAPERS. PATIENT LEFT IN STABLE CONDITION
--- NOTE | 2017-01-18 09:18 | NUR ---
SPOKE WITH WINSTON FROM [facility]. PATIENT NEEDS HOME HEALTH FOR PT. FAXED ORDER TO HER AT [phone] PHONE [phone]
--- NOTE | 2017-01-18 11:11 | NUR ---
SPOKE WITH WINSTON FROM [facility] [place]. THE HOME PT WILL BE BY [facility] PHONE [phone] AUTH [id number]. [facility] WILL CONTACT PATIENT.
[2017-03-16] MEDS ORDERED: VANCOMYCIN1 GM/1001 IV (10:10)
[2017-03-18] MEDS ORDERED: LEVAQUIN750 MG PO (15:30)
[2017-03-18] MEDS ORDERED: BD LACTINEX1.4 MG PO (15:30)
[2017-03-18] MEDS ORDERED: CLEOCIN HCL300 MG PO (15:31)
== END 2017-01-16 18:45 | disposition home health service (06) | DRG 690 ==
LOC: MED 09:30 → MTU 12:05
PROVIDERS: ADMIT Hospitalist; ATTEND Hospitalist
DX: N39.0 Urinary tract infection, site not specified (principal); I10 Essential (primary) hypertension; E11.9 Type 2 diabetes mellitus without complications; S30.0XXA Contusion of lower back and pelvis, initial encounter; M51.36 Other intervertebral disc degeneration, lumbar region; B96.89 Other specified bacterial agents as the cause of diseases classified elsewhere; W06.XXXA Fall from bed, initial encounter; Z79.82 Long term (current) use of aspirin; Z79.01 Long term (current) use of anticoagulants; Z79.899 Other long term (current) drug therapy; Z85.46 Personal history of malignant neoplasm of prostate; Z86.718 Personal history of other venous thrombosis and embolism; Z86.73 Personal history of transient ischemic attack (TIA), and cerebral infarction without residual deficits; Y93.89 Activity, other specified; Y92.89 Other specified places as the place of occurrence of the external cause; Y99.8 Other external cause status

== ENCOUNTER 2017-03-04 01:38 | Inpatient (IN) | payer OTHER ==
[~2017-03-04] VITALS: Ht 188 cm; Wt 80.7 kg
[~2017-03-04 01:38] MED LIST changes: +KEFLEX250 MG PO
--- NOTE | 2017-03-04 01:38 | NUR ---
BIBA TO ER BED 7
[2017-03-04 01:41] VITALS: BP 100/64
[2017-03-04] MEDS ORDERED: NACL 0.9% 1,000 ML IV ONE ×2 (01:45→02:00)
--- NOTE | 2017-03-04 01:45 | NUR ---
86 Y/O M BIBA C/O GEN WEAKNESS, ALOC.PATIENT CAN NOT WALK, HX OF PROSTATE CANCER
[2017-03-04] MEDS ORDERED: LOTENSIN20 MG PO (01:49)
[2017-03-04] MEDS ORDERED: HYTRIN PO (01:49)
[2017-03-04] MEDS ORDERED: FLOMAX0.4 MG PO (01:49)
[2017-03-04] MEDS ORDERED: NORCO 5/325 MG1 TAB PO (01:49)
--- NOTE | 2017-03-04 01:50 | NUR ---
Patient being evaluated by physician at bedside.
[2017-03-04] MEDS ORDERED: ONDANSETRON 4 MG/2 ML VIAL IVP ONE (02:00)
[2017-03-04] MEDS ORDERED: PIPERACILLIN/TAZOBACTAM 3.375 GM in DEXTROSE 5% 50 ML IV ONE (02:45)
[2017-03-04] MEDS ORDERED: ASPIRIN 81 MG TAB.CHEW PO ONE (02:45)
[2017-03-04] MEDS ORDERED: POTASSIUM CHL 40 MEQ/ D5-1/2NS 1,000 ML IV ONE (02:45)
[2017-03-04] MEDS ORDERED: LEVOFLOXACIN 500 MG/D5W PREMIX 100 ML IV ONE (02:45)
[2017-03-04] MEDS ORDERED: PIPERACILLIN/TAZOBACTAM 3.375 GM VIAL IV ONE (02:58)
[2017-03-04] MEDS ORDERED: ACETAMINOPHEN 325 MG TAB PO PRN (03:10)
[2017-03-04] MEDS ORDERED: ONDANSETRON 4 MG/2 ML VIAL IVP PRN (03:10)
[2017-03-04] MEDS ORDERED: HYDROcodone/APAP 5/325 MG 1 TAB TAB PO PRN (03:10)
[2017-03-04] MEDS ORDERED: DOCUSATE SODIUM 100 MG GELCAP PO PRN (03:10)
[2017-03-04] MEDS ORDERED: MORPHINE SULFATE 2 MG/ML SYR IVP PRN (03:10)
[2017-03-04] MEDS ORDERED: POTASSIUM CHLORIDE 40 MEQ, LIDOCAINE 1% 25 MG in NACL 0.9% 250 ML IV SCH (03:15)
[2017-03-04] MEDS ORDERED: hePARIN / DEXT 5% PREMIX 250 ML IV SCH (04:05)
[2017-03-04] MEDS ORDERED: HEPARIN PER PHARMACY MC PRN (04:05)
--- NOTE | 2017-03-04 04:15 | NUR ---
PT BACK FROM CT SCAN, SLEEPING, ON DIRECTOR OF [employer]THLET[employer], VSS.
--- NOTE | 2017-03-04 04:38 | NUR ---
Patient will be admitted to care of DR SHANKAR. Admited to TELEMETRY. Will go to [id number]. Belongings list completed. Report to FELICITAS NOEL.
--- NOTE | 2017-03-04 04:55 | NUR ---
PT TRASFERRED TO TELEMETRY, ROOM 123 B VIA GURNEY, NO S/S OF DISTRESS NOTED ON TRASFER.
--- NOTE | 2017-03-04 05:00 | NUR ---
PT ARRIVED ON UNIT IN STABLE CONDITION. NO SOB, NO SIGNS OF DISTRESS. VS STABLE ON ROOM AIR. IV TO RT AC, LT WRTIST BOTH 20G PATENT, ASYMPTOMATIC, INTACT, IVF RUNNING IN RT AC. PT HAS SCABS TO BLE, SKIN OTHERWISE INTACT. PT IS AOX4, AMBULATES WITH ASSIST. ORIENTED PT TO ROOM AND UNIT. PLAN OF CARE DISCUSSED WITH PT. SAFETY MEASURES IN PLACE. CALL LIGHT WITHIN REACH. WILL CONTINUE TO MONITOR.
[2017-03-04 05:14] VITALS: BP 119/63
[2017-03-04] MEDS: NACL 0.9% 1,000 ML IV SCH ×2 (05:44→13:15)
[2017-03-04] MEDS ORDERED: LIDOCAINE 1% 0 ML ONE (05:50)
--- NOTE | 2017-03-04 05:50 | NUR ---
UNABLE TO MIX POTASSIUM IV ORDER, WILL ENDORSE TO AM SHIFT TO OBTAIN FROM PHARMACY.
--- NOTE | 2017-03-04 06:06 | NUR ---
HEPARIN BOLUS GIVEN, AND DRIP STARTED PT TOLERATING WELL. NO SOB, NO SIGNS OF DISTRESS. IV SITES ASYMPTOMATIC, INTACT, PATENT, IVF AND HEPARIN RUNNING. PT DENIES PAIN AT THIS TIME. PLAN OF CARE DISCUSSED WITH PT. SAFETY MEASURES IN PLACE. CALL LIGHT WITHIN REACH. WILL CONTINUE TO MONITOR.
--- NOTE | 2017-03-04 06:34 | NUR ---
BLOOD SUGAR 231, WILL ENDORSE TO AM SHIFT TO HAVE MD OUT IN BLOOD SUGAR CHECKS ACHS, INSULIN AND D50 ORDERS.
--- NOTE | 2017-03-04 06:55 | NUR ---
MD SHANKAR VERBALLY MADE AWARE THAT PT NEEDS BLOOD SUGAR CHECKS, INSULIN, AND D50 ORDERS, MD ALSO MADE AWARE THAT I WAS UNABLE TO MIX AND GIVE POTASSIUM IV ORDER, AND THAT PT DOES NOT HAVE HIS DENTURES AND NEEDS A SOFT DIET. TO SEE PT.
--- NOTE | 2017-03-04 07:07 | NUR ---
SPOKE RASHMI KAPLAN IN PHARMACY AND MD SHANKAR, POTASSIUM IV ORDER CLARIFIED, TO CANCEL ORDER FROM 314 AND MOST RECENT ORDER STANDS.
[2017-03-04] MEDS ORDERED: ALBUTEROL SULFATE/IPRATROPIU 3 ML SOL IH PRN (07:10)
--- NOTE | 2017-03-04 07:21 | NUR ---
ENDORSED PT IN STABLE CONDITION TO FELICITAS MONTERO. ALL NEEDS HAVE BEEN MET AT THIS TIME.
--- NOTE | 2017-03-04 07:30 | NUR ---
RECEIVED PT FROM SADIE POLK. PT AWAKE, ALERT, AND ORIENTED. NO SIGNS OF DISTRESS. ON ROOM AIR. IV TO RT AC, LT WRTIST BOTH 20G PATENT, ASYMPTOMATIC, INTACT, IVF RUNNING IN RT AC. LT WRIST RUNNING HEPARIN DRIP AT 1500 UNITS/HR.PT HAS SCABS TO BLE AND OLD BRUISES TO LEFT UPPER EXTREMITIES . ORIENTED PT TO ROOM AND UNIT. PLAN OF CARE DISCUSSED WITH PT. SAFETY MEASURES IN PLACE. CALL LIGHT WITHIN REACH. WILL CONTINUE TO MONITOR.
[2017-03-04 08:00] VITALS: BP 131/71
[2017-03-04] MEDS ORDERED: FLUCONAZOLE 100 MG TAB PO SCH (08:00)
[2017-03-04] MEDS ORDERED: KCL 20 MEQ/WATER INJ PREMIX 200 ML IV SCH (08:00)
--- NOTE | 2017-03-04 08:45 | NUR ---
CM NOTE PER [employer] GERALDO EXT [phone], REVIEWS SHOULD BE SENT TO HEALTH SYSTEM. FAXED INITIAL REVIEW TO HEALTH SYSTEM FAX# [phone] WINSTON MARCH PH# [phone]
[2017-03-04] MEDS ORDERED: BENAZEPRIL 20 MG TAB PO SCH (09:00)
--- NOTE | 2017-03-04 09:00 | NUR ---
DUE MEDS GIVEN, TOLERATED WELL
[2017-03-04] MEDS: TERAZOSIN 5 MG CAP PO SCH (09:48)
[2017-03-04] MEDS: PANTOPRAZOLE 40 MG TABEC PO SCH (09:49)
[2017-03-04] MEDS: BICALUTAMIDE 50 MG TAB PO SCH (10:09)
--- NOTE | 2017-03-04 10:26 | NUR ---
PATIENT HAS BEEN SCREENED AND CATEGORIZED HIGH NUTRITION RISK. PATIENT WILL BE SEEN WITHIN 1-2 DAYS OF ADMISSION. 03/04/17-03/05/[address]
--- NOTE | 2017-03-04 11:07 | NUR ---
CRITICAL REPORT RECEIVED. TROPONIN 0.182. RESIDENT AWARE. NO NEW ORDER RECEIVED.
[2017-03-04 12:00] VITALS: BP 93/60
[2017-03-04] MEDS: PIPER/TAZO 2.25GM/D5W PREMIX 50 ML IV SCH ×2 (13:14→21:36)
[2017-03-04] MEDS ORDERED: MECLIZINE 25 MG TAB PO PRN (13:30)
--- NOTE | 2017-03-04 13:31 | NUR ---
CRITICAL LAB REPORT RECEIVED PTT 91.3, PROTOCOL INITIATED. DR. PETERSEN RESIDENT AWARE.
[2017-03-04] MEDS ORDERED: DEXTROSE 50% 50 ML SYR IVP PRN (13:40)
--- NOTE | 2017-03-04 15:30 | NUR ---
PT SLEEPING AT THIS TIME. NO S/S OF RESPIRATORY DISTRESS NOTED. WILL CONTINUE TO MONITOR.
--- NOTE | 2017-03-04 15:46 | NUR ---
03/04/17 RD INITIAL ASSESSMENT COMPLETED PLEASE REFER TO NUTRITION ASSESSMENT UNDER CARE ACTIVITY FOR ESTIMATED NUTRITIONAL NEEDS. 1. CONTINUE CARDIAC DIET 2. CONSIDER THERAPEUTIC DIET, 60 GM CONSISTENT CARBOHYDRATE DIET WITH MECHANICAL SOFT TEXTURE 3. RD TO FOLLOW-UP 2-3 DAYS; HIGH RISK ESTRELLA FARRIS, YADIRA
[2017-03-04 16:00] VITALS: BP 100/50
[2017-03-04] MEDS: BLOOD GLUCOSE MONITORING 1 DEV DEV FS SCH ×2 (16:41→21:36)
[2017-03-04] MEDS: INSULIN LISPRO SLIDING SCALE 100 UNITS/ML VIAL SUBQ PRN ×2 (16:41→21:22)
--- NOTE | 2017-03-04 17:30 | NUR ---
PT'S DAUGHTER AND PRESENT AT BEDSIDE. QUESTIONS ANSWERED. DR. PETERSEN IN TO ASSESS PT AT THIS TIME .
--- NOTE | 2017-03-04 18:00 | NUR ---
DINNER TRAY SERVED. PT HAD A GOOD APPETITE.
--- NOTE | 2017-03-04 19:20 | NUR ---
REPORT GIVEN TO KELI POLK. VSS AT THIS TIME.
--- NOTE | 2017-03-04 19:25 | NUR ---
RECEIVED PT FROM WINSTON POLK PT IS AAOX4 AMBULATES WITH JEWEL STRIPPER ON TELEMETRY SR , IV ON RT AC INFUSING WELL,NOT FEVER, NOT SOB NOTED INITIAL ASSESSMENT DONE
[2017-03-04 20:00] VITALS: BP 103/47
[2017-03-04] MEDS: ATORVASTATIN 20 MG TAB PO SCH (21:36)
--- NOTE | 2017-03-04 22:00 | NUR ---
LAB CALLED FOR CRITICAL VALUES RESULT ON BLOOD CULTURE POSITIVE COCCI IN CHAIN BUT NOT RECORD IN MICROBIOLOGY LAB RESULT PENDING TO PUT IT ON MICROBIOLOGY
--- NOTE | 2017-03-04 23:00 | NUR ---
ORDER [facility] AND RADIOLOGY WAS CALLED AND THEY SAY THE TEST WILL BE IN THE MORNING BECAUSE IS NOT ORDER FOR STAT AND CT ABD AND PELVIS THEY WILL DO
[2017-03-05] VITALS: BP 113/62
--- NOTE | 2017-03-05 02:00 | NUR ---
PT REPOSITIONED ON TELMETRY SR NOT DISTRESS NOTED IV ON LEFT WRIST INFUSING WELL
[2017-03-05] MEDS: NACL 0.9% 1,000 ML IV SCH ×3 (02:20→17:40)
[2017-03-05 04:00] VITALS: BP 124/57
[2017-03-05] MEDS: PIPER/TAZO 2.25GM/D5W PREMIX 50 ML IV SCH ×3 (04:56→20:29)
[2017-03-05] MEDS: BLOOD GLUCOSE MONITORING 1 DEV DEV FS SCH ×4 (05:40→20:30)
[2017-03-05] MEDS: INSULIN LISPRO SLIDING SCALE 100 UNITS/ML VIAL SUBQ PRN ×3 (05:41→20:31)
--- NOTE | 2017-03-05 05:45 | NUR ---
PT GETTING SLEEP AFTER PAINMEDIC GIVEN.
--- NOTE | 2017-03-05 06:08 | NUR ---
BLOOD SUGAR 154 COVERAGE WITH 2 UNITS HUMALOG
--- NOTE | 2017-03-05 07:05 | NUR ---
RECEIVED REPORT FROM NIGHT RN. PT RESTING IN BED. AAOX4, WITH PERIODS OF CONFUSION. NO S/S OF ACUTE DISTRESS. PT DENIES PAIN. IV SITES PATENT AND INTACT. PT AMBULATING TO BATHROOM WITH ASSIST. CALL LIGHT WITHIN REACH. SAFETY MEASURES ENSURED. WILL CONTINUE TO MONITOR.
[2017-03-05 08:00] VITALS: BP 104/57
[2017-03-05] MEDS ORDERED: RIVAROXABAN 10 MG TAB PO SCH (09:00)
[2017-03-05] MEDS ORDERED: TAMSULOSIN 0.4 MG CAP PO SCH (09:00)
--- NOTE | 2017-03-05 09:35 | NUR ---
CM NOTE FAXED CONCURRENT REVIEW TO [facility] FAX# [phone] WINSTON MARCH PH# [phone]
[2017-03-05] MEDS: glipiZIDE 10 MG TAB PO SCH (09:40)
[2017-03-05] MEDS: PANTOPRAZOLE 40 MG TABEC PO SCH (09:40)
[2017-03-05] MEDS: FLUCONAZOLE 100 MG TAB PO SCH (09:40)
[2017-03-05] MEDS: TERAZOSIN 5 MG CAP PO SCH (09:40)
[2017-03-05] MEDS: FAMOTIDINE 20 MG TAB PO SCH (09:40)
[2017-03-05] MEDS: BICALUTAMIDE 50 MG TAB PO SCH (09:41)
--- NOTE | 2017-03-05 10:12 | NUR ---
PT TOLERATED AM MEDS WELL. NO S/S OF ACUTE DISTRESS. PT DENIES PAIN. CALL LIGHT WITHIN REACH. SAFETY MEASURES ENSURED. WILL CONTINUE TO MONITOR.
--- NOTE | 2017-03-05 10:38 | NUR ---
DR. READ MADE AWARE OF MAG 1.7
--- NOTE | 2017-03-05 11:58 | NUR ---
PT SLEEPING IN BED. NO S/S OF ACUTE DISTRESS. CALL LIGHT WITHIN REACH. SAFETY MEASURES ENSURED. WILL CONTINUE TO MONITOR.
[2017-03-05 12:00] VITALS: BP 124/67
--- NOTE | 2017-03-05 14:05 | NUR ---
STEPHEN CATHETER INSERTED. 1200 OUT. STEPHEN CLAMPED. NO S/S OF ACUTE DISTRESS. PT WILL BE MEDICATED ORDERED FOR ABDOMINAL PAIN. WILL CONTINUE TO MONITOR.
[2017-03-05 16:00] VITALS: BP 123/63
[2017-03-05] MEDS ORDERED: WARFARIN 5 MG TAB PO SCH (17:00)
--- NOTE | 2017-03-05 17:08 | NUR ---
DR. PETERSEN MADE AWARE OF PT'S PINKISH URINE OUTPUT OF 1400.
--- NOTE | 2017-03-05 17:12 | NUR ---
DR. PETERSEN MADE AWARE OF MAG 1.7
[2017-03-05] MEDS ORDERED: MAGNESIUM OXIDE 400 MG TAB PO SCH (18:00)
--- NOTE | 2017-03-05 19:33 | NUR ---
RECEIVED REPORT FROM MARIA M POLK AT BEDSIDE. PT IS ALERT AWAKE ORIENTED X4 WITH CONFUSION AT TIMES. INITIAL ASSESSMENT DONE. NO S/S OF RESPIRATORY DISTRESS OR SOB NOTED. NO C/O PAIN OR ANY DISCOMFORT AT THIS TIME. PLAN OF CARE REVIEWED TO PT AND FAMILY AT BEDSIDE AND VERBALIZED UNDERSTANDING. CALL LIGHT WITHIN REACH. WILL CONTINUE TO MONITOR.
--- NOTE | 2017-03-05 19:33 | NUR ---
ENDORSED PLAN OF CARE TO NIGHT RN. PT REMAINS IN STABLE CONDITION.
[2017-03-05 20:00] VITALS: BP 127/61
[2017-03-05] MEDS: TAMSULOSIN 0.4 MG CAP PO SCH (20:29)
[2017-03-05] MEDS: ATORVASTATIN 20 MG TAB PO SCH (20:30)
[2017-03-06] VITALS (7 sets, daily range): BP systolic 129–154; BP diastolic 54–76
--- NOTE | 2017-03-06 01:35 | NUR ---
RECEIVED REPORT FROM FELICITAS BROWN. PT LAYING IN BED. PT AOX4; WITH EPISODES OF CONFUSION OF TIMES. PT HAS IV TO LEFT FOREARM 20G SL AND LEFT HAND 20 G INFUSING FLUIDS WELL. PT HAS SOME BRUISING ON BILATERAL LOWER EXTREMITIES. PT HAS A STEPHEN CATHETER IN PLACE. ORIENTED PT TO ROOM AND SURROUNDINGS AND USE OF CALL LIGHT. SAFETY MEASURES IN PLACE. WILL CONTINUE TO MONITOR PT.
--- NOTE | 2017-03-06 01:45 | NUR ---
PT HAS NO S/S OF ANY DISCOMFORT. PLAN OF CARE ENDORSED TO JONATHAN RN AT BEDSIDE FOR CONTINUITY OF CARE.
--- NOTE | 2017-03-06 03:33 | NUR ---
CHECKED ON PT. PT DRINKING WATER. PT DENIES PAIN OR DISCOMFORT, WILL CONTINUE TO MONITOR PT.
[2017-03-06] MEDS: NACL 0.9% 1,000 ML IV SCH ×3 (04:22→23:15)
[2017-03-06] MEDS: PIPER/TAZO 2.25GM/D5W PREMIX 50 ML IV SCH ×3 (04:23→20:48)
--- NOTE | 2017-03-06 04:31 | NUR ---
0500 ZOSYN INFUSING AT THIS TIME. PT TALKING, PT STABLE. WILL CONTINUE TO MONITOR PT.
[2017-03-06] MEDS: BLOOD GLUCOSE MONITORING 1 DEV DEV FS SCH ×4 (06:43→21:30)
--- NOTE | 2017-03-06 07:20 | NUR ---
REPORT GIVEN TO DAY SHIFT RN. PT IN STABLE CONDITION.
--- NOTE | 2017-03-06 07:21 | NUR ---
PT AWAKE AND ALERT AND ORIENTED X4 WITH PERIODS OF CONFUSION, NO SIGNS OF ACUTE DISTRESS, BREATHING EVEN AND UNLABORED BILATERALLY, BOWEL SOUNDS ACTIVE IN ALL 4 QUADRANTS, AMBULATE WITH ASSIST, SKIN INTACT WITH BRUISING ON UPPER AND LOWER EXTREMITIES, BOWEL INCONTINENCE STEPHEN CATHETER IN PLACE, IV PATIENT AND INFUSING WITHOUT REDNESS, BED IN LOW POSITION WITH BILATERAL HALF SIDE RAILS UP, CALL LIGHT WITHIN REACH.
[2017-03-06] MEDS ORDERED: CLINICAL MONITORING MC PRN (09:00)
[2017-03-06] MEDS ORDERED: POTASSIUM CHLORIDE 40 MEQ, LIDOCAINE 1% 25 MG in NACL 0.9% 250 ML IV SCH (09:00)
[2017-03-06] MEDS: PANTOPRAZOLE 40 MG TABEC PO SCH (09:17)
[2017-03-06] MEDS: glipiZIDE 10 MG TAB PO SCH (09:17)
[2017-03-06] MEDS: FAMOTIDINE 20 MG TAB PO SCH (09:17)
[2017-03-06] MEDS: TAMSULOSIN 0.4 MG CAP PO SCH ×2 (09:17→20:48)
[2017-03-06] MEDS: FLUCONAZOLE 100 MG TAB PO SCH (09:17)
[2017-03-06] MEDS: BICALUTAMIDE 50 MG TAB PO SCH (09:25)
[2017-03-06] MEDS: INSULIN LISPRO SLIDING SCALE 100 UNITS/ML VIAL SUBQ PRN ×2 (12:16→17:04)
--- NOTE | 2017-03-06 12:56 | NUR ---
03/06/17 RD FOLLOW UP COMPLETED REFER TO NUTRITION PROGRESS NOTE UNDER CARE ACTIVITY FOR ESTIMATED NEEDS. RD RECOMMENDATIONS: 1. CONTINUE MECHANICAL SOFT, 60gm CCHO DIET TOLERATED. 2. APPRECIATE FOOD PREFERENCES. 3. RD TO FOLLOW-UP 2-3 DAYS; HIGH RISK FELIX RICHARDS, RD
[2017-03-06] MEDS ORDERED: MAG SULF 2000 MG/WATER PREMIX 50 ML IV SCH (14:00)
--- NOTE | 2017-03-06 14:55 | NUR ---
CALLED AND LEFT MESSAGE WITH DR. JOHNSON'S PAGER REGARDING NEW CONSULT. FAXED FACE SHEET.
[2017-03-06] MEDS ORDERED: WARFARIN 5 MG TAB PO SCH (17:00)
--- NOTE | 2017-03-06 19:28 | NUR ---
RECEIVED FROM AM RN IN BED WITH FAMILY MEMBERS AROUND. VERBALIZING WELL. SPEAKS PORTUGUESE AND UPPER SORBIAN. STEPHEN CATHETER IN PLACE DRAINING WELL WITH YELLOW URINE. IVF SITE RIGHT AND LEFT ARMS INTACT AND NOT INFILTRATED. CARE CARE PLANS FOR THE NIGHT DISCUSSED WITH THEM AND RE-ORIENTED TO CALL LIGHT USE. DENIES ANY PAIN AT THIS TIME. TELEMETRY MONITORING.
--- NOTE | 2017-03-06 19:37 | NUR ---
PT ALERT AND AWAKE, NO SIGNS OF ACUTE DISTRESS, BED IN LOW POSITION WITH BILATERAL HALF SIDE RAILS UP, CALL LIGHT WITHIN REACH, ENDORSED TO RAILCAR CARPENTER NURSE FOR CONTINUITY OF CARE.
[2017-03-06] MEDS: ATORVASTATIN 20 MG TAB PO SCH (20:48)
--- NOTE | 2017-03-06 22:30 | NUR ---
PT. IS ABLE TO VERBALIZE NEEDS WELL. NO SOB. REQUESTED TO BE CLEANED UP RT WITH BM. KEPT CLEAN , DRY AND COMFORTABLE. TURNED TO SIDES Q 2H BY EMPLOYMENT ADVISOR AND RN. PILLOW SUPPORT TO PRESSURE AREAS.
--- NOTE | 2017-03-06 23:09 | NUR ---
PT. STILL AWAKE AND WATCHING TV. ENCOURAGED TO SLEEP. " I AM A DAY TIME SLEEPER" "I DON NOT SLEEP IN THE NIGHT." TELEMETRY MONITORING. STEPHEN CATHETER IN PLACE AND DRAINING WELL WITH YELLOW CLEAR URINE. IVF SITE TO RIGHT ARM INTACT AND NO INFILTRATION NOTED. WITH GOOD BLOOD RETURN.
[2017-03-07 00:50] VITALS: BP 150/82
--- NOTE | 2017-03-07 02:15 | NUR ---
STILL AWAKE AND WATCHING TV. ENCOURAGED TO SLEEP. CALL LIGHT WITH IN REACH.
[2017-03-07] MEDS: NACL 0.9% 1,000 ML IV SCH ×3 (03:35→12:27)
[2017-03-07 04:31] VITALS: BP 160/82
--- NOTE | 2017-03-07 04:48 | NUR ---
AWAKE AND DRINKING WATER ALL THE TIME RT" MY MOUTH IS DRY." VERBALIZES WELL. TELEMETRY MONITORING. NO SOB.
[2017-03-07] MEDS: PIPER/TAZO 2.25GM/D5W PREMIX 50 ML IV SCH ×3 (05:05→21:03)
[2017-03-07] MEDS: BLOOD GLUCOSE MONITORING 1 DEV DEV FS SCH ×4 (05:16→21:03)
--- NOTE | 2017-03-07 07:23 | NUR ---
ENDORSED TO THE NEXT RN FOR CONTINUITY OF CARE. AWAKE AND ABLE TO VERBALIZE NEEDS WELL.
--- NOTE | 2017-03-07 07:24 | NUR ---
PT AWAKE AND ALERT AND ORIENTED X4, PERRLA, NO SIGNS OF ACUTE DISTRESS, BREATHING EVEN AND UNLABORED BILATERALLY, BOWEL SOUNDS ACTIVE IN ALL FOUR QUADRANTS, NO COMPLAINTS OF PAIN, AMBULATORY WITH ASSIST, SKIN INTACT WITH BRUISING ON UPPER AND LOWER EXTREMITIES, BOWEL AND BLADDER INCONTINENCE WITH STEPHEN CATHETER IN PLACE, TELE MONITOR IN PLACE, BED IN LOW POSITION WITH ALARM ON AND BILATERAL HALF SIDE RAILS UP, CALL LIGHT WITHIN REACH.
[2017-03-07 08:00] VITALS: BP 132/65
[2017-03-07] MEDS ORDERED: RIVAROXABAN 10 MG TAB PO SCH (09:00)
[2017-03-07] MEDS: FAMOTIDINE 20 MG TAB PO SCH (09:29)
[2017-03-07] MEDS: glipiZIDE 10 MG TAB PO SCH (09:29)
[2017-03-07] MEDS: PANTOPRAZOLE 40 MG TABEC PO SCH (09:30)
[2017-03-07] MEDS: BICALUTAMIDE 50 MG TAB PO SCH (09:30)
[2017-03-07] MEDS: TAMSULOSIN 0.4 MG CAP PO SCH ×2 (09:30→21:04)
[2017-03-07] MEDS: FLUCONAZOLE 100 MG TAB PO SCH (09:30)
--- NOTE | 2017-03-07 10:49 | NUR ---
RECEIVED NEW MED FOR POTASSIUM PO, FROM DR GOMEZ. SERUM POTASSIUM IS 3.1. WILL CARRY OUT.
[2017-03-07] MEDS ORDERED: POTASSIUM CHLORIDE 10 MEQ TABER PO SCH (11:00)
[2017-03-07 12:00] VITALS: BP 156/83
[2017-03-07] MEDS: INSULIN LISPRO SLIDING SCALE 100 UNITS/ML VIAL SUBQ PRN ×2 (12:29→17:00)
[2017-03-07] MEDS ORDERED: POTASSIUM CHLORIDE 40 MEQ, LIDOCAINE 1% 25 MG in NACL 0.9% 250 ML IV SCH ×2 (14:15→16:15)
[2017-03-07] MEDS ORDERED: PHYTONADIONE 10 MG/ML AMP IM ONE (15:30)
[2017-03-07] MEDS ORDERED: POTASSIUM CHLORIDE 20% 40 MEQ/15 ML UDC PO SCH (15:45)
[2017-03-07 16:00] VITALS: BP 153/80
[2017-03-07] MEDS ORDERED: PHYTONADIONE 10 MG/ML AMP SUBQ SCH (16:00)
[2017-03-07] MEDS: SODIUM PHOS / POTASSIUM PHOS 1 PKT PDR PO SCH ×2 (17:05→21:04)
--- NOTE | 2017-03-07 19:35 | NUR ---
RECEIVED FROM AM RN IN BED AWAKE AND SITTING UP IN BED. FAMILY MEMBERS IN HERE VISITING. ABLE TO VERBALIZE NEEDS WELL. STEPHEN CATHETER IN PLACE AND DRAINING WELL WITH YELLOW CLEAR URINE. DENIES PAIN AT THIS TIME. CALL LIGHT WITH IN REACH AND CARE PLANS FOR THE NIGHT DISCUSSED WITH HI, IVF SITE TO RFA INTACT AND NO INFILTRATION. GOOD BLOOD RETURN.
--- NOTE | 2017-03-07 19:40 | NUR ---
PT AWAKE AND ALERT, NO SIGNS OF ACUTE DISTRESS, ENDORSED TO COMMERCIAL ESTIMATOR NURSE FOR CONTINUITY OF CARE.
[2017-03-07 20:00] VITALS: BP 150/78
[2017-03-07] MEDS: ATORVASTATIN 20 MG TAB PO SCH (21:04)
[2017-03-07] MEDS ORDERED: LORazepam 0.5 MG TAB PO SCH (21:20)
--- NOTE | 2017-03-07 22:24 | NUR ---
FAMILY MEMBERS OF PT. IN HERE EARLIER AND WAS REQUESTING FOR PT. SOMETHING TO MAKE HIM SLEEP OR RELAX IN THE NIGHT. MD JESSE ALEXANDER WITH NEW ORDERS FOR ATIVAN P.O. MEDICATED ORDERED. TOLERATED WELL. NO FURTHER COMPLAINTS. HAD BM AND ASSISTED PT. TO BEDSIDE COMMODE. KEPT DRY,CLEAN AND COMFORTABLE. NO SOB.
[2017-03-08] VITALS: BP 148/76
[2017-03-08 04:46] VITALS: BP 150/80
[2017-03-08] MEDS: PIPER/TAZO 2.25GM/D5W PREMIX 50 ML IV SCH ×3 (04:50→20:59)
--- NOTE | 2017-03-08 05:00 | NUR ---
SLEEPING WELL. PT. AWAKE AT THIS TIME AND HAPPILY DRINKING HIS WATER. NO COMPLAINTS DONE. PT. WATCHING TV.
[2017-03-08] MEDS: BLOOD GLUCOSE MONITORING 1 DEV DEV FS SCH ×4 (05:29→21:00)
[2017-03-08] MEDS: NACL 0.9% 1,000 ML IV SCH (06:09)
--- NOTE | 2017-03-08 07:25 | NUR ---
PER GARTH, TICK INSPECTOR NURSE, SHE JUST RECEIVED A CRITICAL LAB VALUE FOR PT 71.8 AND INR 6.1. I WENT AHEAD AND INFORMED DR. SHANKAR.
[2017-03-08] MEDS ORDERED: PHYTONADIONE 10 MG/ML AMP SUBQ SCH (07:30)
--- NOTE | 2017-03-08 07:52 | NUR ---
ENDORSED TO THE NEXT RN FOR CONTINUITY OF CARE. AWAKE AND ALERT. NO SOB. ABLE TO VERBALIZE NEEDS WELL. TELEMETRY MONITORING.
--- NOTE | 2017-03-08 07:55 | NUR ---
RECEIVED REPORT FROM FELICITAS LIANG. PT IS A/OX4, AMBULATES WITH ASSIST, IV IS ON THE RT AC, PATENT, INTACT, FLUSHING WELL, SKIN IS INTACT, COMMODE IS AT BEDSIDE, STEPHEN CATHETER IN PLACE, URINE IS CLEAR YELLOW, NO HEMATURIA NOTED, NO S/S OF RESPIRATORY DISTRESS OR DISCOMFORT NOTED, SAFETY/FALL PRECAUTIONS ARE IN PLACE, DISCUSSED PLAN OF CARE WITH PT, PT VERBALIZED UNDERSTANDING, CALL LIGHT IS WITHIN REACH, WILL CONTINUE TO MONITOR.
[2017-03-08 08:00] VITALS: BP 146/75
[2017-03-08] MEDS: BICALUTAMIDE 50 MG TAB PO SCH (08:21)
[2017-03-08] MEDS: SODIUM PHOS / POTASSIUM PHOS 1 PKT PDR PO SCH (08:21)
[2017-03-08] MEDS: FLUCONAZOLE 100 MG TAB PO SCH (08:22)
[2017-03-08] MEDS: PANTOPRAZOLE 40 MG TABEC PO SCH (08:22)
[2017-03-08] MEDS: glipiZIDE 10 MG TAB PO SCH (08:22)
[2017-03-08] MEDS: TAMSULOSIN 0.4 MG CAP PO SCH ×2 (08:22→20:59)
[2017-03-08] MEDS: FAMOTIDINE 20 MG TAB PO SCH (08:22)
--- NOTE | 2017-03-08 10:00 | NUR ---
PT IS RESTING IN BED WATCHING TV, NO S/S OF RESPIRATORY DISTRESS OR DISCOMFORT NOTED, CALL LIGHT WITHIN REACH, WILL CONTINUE TO MONITOR.
[2017-03-08 12:00] VITALS: BP 154/82
--- NOTE | 2017-03-08 12:00 | NUR ---
PT IS SLEEPING IN BED AT THIS TIME.
[2017-03-08] MEDS ORDERED: MAG SULF 2000 MG/WATER PREMIX 50 ML IV ONE (12:05)
[2017-03-08] MEDS: INSULIN LISPRO SLIDING SCALE 100 UNITS/ML VIAL SUBQ PRN ×3 (12:09→21:01)
[2017-03-08] MEDS: NACL 0.45% 1,000 ML IV SCH (12:10)
--- NOTE | 2017-03-08 13:26 | NUR ---
Clinical Review faxed to [facility]
--- NOTE | 2017-03-08 14:04 | NUR ---
FAXED REVIEW TO [facility] AT [phone] PHONE NUMBER [phone]
--- NOTE | 2017-03-08 14:15 | NUR ---
PT NOTES PT held today d/t high INR 6.7, will follow up with PT tx when INR in more therapeutic range. Nursing aware.
--- NOTE | 2017-03-08 14:30 | NUR ---
PT IS SITTING IN BED WATCHING TV, FAMILY IS AT BEDSIDE.
[2017-03-08] MEDS ORDERED: POTASSIUM PHOSPHATE 15 MM in NACL 0.9% 250 ML IV SCH (15:00)
[2017-03-08 16:00] VITALS: BP 134/74
--- NOTE | 2017-03-08 16:00 | NUR ---
PT IS RESTING IN BED, IS AT BEDSIDE.
--- NOTE | 2017-03-08 19:25 | NUR ---
ENDORSED PT TO GARTH, FOR CONTINUITY OF CARE. PT STABLE AT THIS TIME.
--- NOTE | 2017-03-08 19:53 | NUR ---
RECEIVED FROM AM RN IN BED AWAKE AND BEING CLEANED BY TANK TESTER. AT BEDSIDE. NO SOB. DENIES PAIN AT THIS TIME. ABLE TO USE CALL LIGHT FOR NEEDS. TURNED TO SIDES Q 2H. PILLOW SUPPORT TO PRESSURE AREAS. STEPHEN CATHETER IN PLACE AND DRAINING WELL WITH CLEAR COLORED URINE.
[2017-03-08 20:11] VITALS: BP 144/76
[2017-03-08] MEDS: ATORVASTATIN 20 MG TAB PO SCH (20:59)
--- NOTE | 2017-03-08 22:20 | NUR ---
ASSISTED BY MARKET DEVELOPMENT DIRECTOR TO [facility] TO HAVE A BOWEL MOVEMENT. KEPT CLEAN AND DRY. WENT BACK TO SLEEP AND NO COMPLAINTS DONE. TELEMETRY MONITORING. VERBALIZES NEEDS WELL IN NEPALI AND FRISIAN.
--- NOTE | 2017-03-09 00:05 | NUR ---
PT. AWAKE AND COMPLAINED OF PAIN IN HIS URINARY BLADDER. REQUESTED FOR PAIN RELIEVER. MEDICATED ORDERED.
[2017-03-09 00:44] VITALS: BP 138/74
--- NOTE | 2017-03-09 03:09 | NUR ---
SLEEPING WELL. PT. WAKES UP EASILY WHEN TOUCHED. TURNED Q 2H. PT. ABLE TO TURN SELF BUT NEEDS TO BE TURNED RT WEAKNESS. NO SOB. TELEMETRY MONITORING. STEPHEN CATHETER IN PLACE AND SECURED WITH CATHETER SECUREMENT TAPE. IVF SITE INTACT AND NO INFILTRATION.
[2017-03-09 04:49] VITALS: BP 136/76
--- NOTE | 2017-03-09 05:00 | NUR ---
NO COMPLAINTS AT THIS TIME. VITAL SIGNS TAKEN AND WENT BACK TO SLEEP. PT. ABLE TO VERBALIZE NEEDS WELL. TELEMETRY MONITORING. NO SOB.
[2017-03-09] MEDS: PIPER/TAZO 2.25GM/D5W PREMIX 50 ML IV SCH ×2 (05:25→12:18)
[2017-03-09] MEDS: BLOOD GLUCOSE MONITORING 1 DEV DEV FS SCH ×2 (05:26→11:49)
[2017-03-09 08:00] VITALS: BP 136/70
[2017-03-09] MEDS ORDERED: LORazepam 2 MG/ML VIAL IVP SCH (09:09)
[2017-03-09] MEDS: FLUCONAZOLE 100 MG TAB PO SCH (09:18)
[2017-03-09] MEDS: FAMOTIDINE 20 MG TAB PO SCH (09:18)
[2017-03-09] MEDS: glipiZIDE 10 MG TAB PO SCH (09:18)
[2017-03-09] MEDS: TAMSULOSIN 0.4 MG CAP PO SCH (09:18)
[2017-03-09] MEDS: PANTOPRAZOLE 40 MG TABEC PO SCH (09:18)
--- NOTE | 2017-03-09 09:20 | NUR ---
PT FOUND SIDEWAYS IN BED, PT STATES HE WAS TRYING TO GET UP BUT NOW CAN'T MOVE, REPEATEDLY STATES " I DON'T KNOW WHAT'S GOING ON, WHAT AM I DOING, WHERE AM I GOING" PT AGITATED AND DIFFICULT TO CONSOLE, PT REORIENTED, REPOSITIONED, CLEANED AND BED BATHED BY GAS PLANT TECHNICIAN, DR SHANKAR NOTIFIED, ATIVAN ORDERED, WILL MEDICATE PER ORDER
[2017-03-09] MEDS: BICALUTAMIDE 50 MG TAB PO SCH (09:28)
--- NOTE | 2017-03-09 11:02 | NUR ---
INCONTINENT OF STOOL IN BED, PERICARE DONE, LINENS CHNAGED
[2017-03-09 12:00] VITALS: BP 144/77
[2017-03-09] MEDS: NACL 0.45% 1,000 ML IV SCH (12:05)
--- NOTE | 2017-03-09 12:05 | NUR ---
DR SHANKAR AT BEDSIDE FOR EVAL AND TO DISCUSS PLAN OF CARE/DC WITH AND DAUGHTER IN LAW, DR SHANKAR TO CONSULT CM FOR SNF PLACEMENT FOR CONTINUED PT AND IV ANTIBIOTIC, FAMILY IN AGREEANCE, PT RESTING QUIETLY IN NAD, RESP EVEN UNLABORED, SKIN WARM DRY COLOR WNL, WILL CONTINUE TO MONITOR
[2017-03-09] MEDS: INSULIN LISPRO SLIDING SCALE 100 UNITS/ML VIAL SUBQ PRN (12:20)
--- NOTE | 2017-03-09 13:43 | NUR ---
SS NOTE: PER ALYSE FROM [facility] [place] ([phone]), PT HAS BEEN ACCEPTED AND PT CAN GO TO ROOM 47C UNDER DR. CARL FELICIANO. I SPOKE WITH PT'S , DAYANA BEDSIDE TO PT AND PROVIDED HER WITH THE ABOVE INFORMATION. SHE STATED THAT SHE IS IN AGREEMENT WITH PT GOING TO [facility] [place] UPON DISCHARGE. PT SEEMED CONFUSED AND WAS NOT ABLE TO RESPOND APPROPRIATELY TO QUESTIONS.
[2017-03-09] MEDS ORDERED: BLOOD GLUCOSE1 EACH FS (14:08)
[2017-03-09] MEDS ORDERED: HUMALOG SL100 UNITS/ SUBQ (14:09)
[2017-03-09] MEDS ORDERED: VENTOLIN H0.09 MG/Ac IH (14:09)
[2017-03-09] MEDS ORDERED: DIFLUCAN100 M1 PO (14:09)
[2017-03-09] MEDS ORDERED: VANCOCIN IV (14:09)
[2017-03-09] MEDS ORDERED: MECLIZINE HYDRO25 M2 PO (14:09)
--- NOTE | 2017-03-09 14:09 | NUR ---
FAXED CONCURRENT REVIEW TO [facility] [place] [place] [phone] PHONE WINSTON [phone]
--- NOTE | 2017-03-09 14:40 | NUR ---
PT UP TO BATHROOM WITH 2 PEOPLE ASSIST, BM X1, PT UNSTEADY ON HIS FEET, RETURNED BACK TO BED, AWAITING CONFIRMATION ON BED AT [facility] [place] AND SONINLAW AT BEDSIDE, WILL CONTINUE TO MONITOR
--- NOTE | 2017-03-09 14:54 | NUR ---
[place] [facility] [place] [facility] [place] [id number] AUTH FOR [facility], [facility] [place], [place] [id number], [facility]ED [facility] , , AND SET UP TRANSPORT FOR 3:30P.Karishma VENCES RN AWARE.
[2017-03-09 14:55] VITALS: BP 147/77
--- NOTE | 2017-03-09 15:05 | NUR ---
REPORT CALLED TO CASTILLO OSEGUERA RN, ALL QUESTIONS ASKED AND ANSWERED, TRANSPORT ETA 1530, UPDATED WITH PLAN OF CARE, PT UP TO BEDSIDE COMMODE WITH ASSIST, NO BM AT THIS TIME, WILL CONTINUE TO MONITOR.
--- NOTE | 2017-03-09 16:10 | NUR ---
TRANSPORT TO BEDSIDE, RPEORT GIVEN, COPY OF CHART GIVEN, PT TO [facility] IN [facility] WITH STEPHEN DRAINING DARK CHINEDU URINE, PIV SL AT RIGHT WRIST, ALL PERSONAL BELONGINGS INCLUDING GLASSES AND DENTURES TAKEN HOME BY .
[2017-03-16] MEDS ORDERED: VANCOMYCIN1 GM/1001 IV (10:10)
[2017-03-18] MEDS ORDERED: BD LACTINEX1.4 MG PO (15:30)
[2017-03-18] MEDS ORDERED: LEVAQUIN750 MG PO (15:30)
[2017-03-18] MEDS ORDERED: CLEOCIN HCL300 MG PO (15:31)
== END 2017-03-09 16:20 | DRG 871 ==
LOC: MED 01:38 → MTU 03:10
PROVIDERS: ADMIT Family Medicine; ATTEND Family Medicine
DX: A41.81 Sepsis due to Enterococcus (principal); N17.0 Acute kidney failure with tubular necrosis; I21.4 Non-ST elevation (NSTEMI) myocardial infarction; N39.0 Urinary tract infection, site not specified; I82.411 Acute embolism and thrombosis of right femoral vein; F32.1 Major depressive disorder, single episode, moderate; N13.30 Unspecified hydronephrosis; C79.51 Secondary malignant neoplasm of bone; D68.59 Other primary thrombophilia; G90.9 Disorder of the autonomic nervous system, unspecified; E11.65 Type 2 diabetes mellitus with hyperglycemia; E87.6 Hypokalemia; E11.51 Type 2 diabetes mellitus with diabetic peripheral angiopathy without gangrene; C61 Malignant neoplasm of prostate; I70.209 Unspecified atherosclerosis of native arteries of extremities, unspecified extremity; E86.0 Dehydration; E83.42 Hypomagnesemia; I45.10 Unspecified right bundle-branch block; D63.8 Anemia in other chronic diseases classified elsewhere; R33.9 Retention of urine, unspecified; I25.10 Atherosclerotic heart disease of native coronary artery without angina pectoris; I13.10 Hypertensive heart and chronic kidney disease without heart failure, with stage 1 through stage 4 chronic kidney disease, or unspecified chronic kidney disease; N18.9 Chronic kidney disease, unspecified; E11.22 Type 2 diabetes mellitus with diabetic chronic kidney disease; I35.0 Nonrheumatic aortic (valve) stenosis; Z86.73 Personal history of transient ischemic attack (TIA), and cerebral infarction without residual deficits; Z86.718 Personal history of other venous thrombosis and embolism; Z79.899 Other long term (current) drug therapy; Z91.81 History of falling; Z87.440 Personal history of urinary (tract) infections

== ENCOUNTER 2017-03-16 09:34 | Inpatient (IN) | payer OTHER ==
[~2017-03-16] VITALS: Ht 188 cm; Wt 88.5 kg
[~2017-03-16 09:34] MED LIST changes: +ALBU0.0912 IH; -ASPIR 8181 MG PO; -ASPIRIN CHILDRE80 MG; +ATOR40TA PO; +BENA20TA PO; -BENAZEPRIL HYDR20 MG PO; -BENAZEPRIL20 M1 PO; +BICA50TA1 PO; +BLOO1STR10 FS; -CASODEX50 MG PO; -FLOMAX0.4 MG PO; +FLUC100T1 PO; +GLIP10TA3 PO; -GLUCOTROL10 M1 PO; +HUMSLIDE SUBQ; +HYDR-4446 PO; -KEFLEX250 MG PO; -KEFLEX500 MG PO; -LIPITOR40 MG PO; +MECL-272 PO; +RANI300T10 PO; -RANITIDINE HCL300 M2 PO; +TAMS0.4C96 PO; +TERA5CAP8 PO; -TERAZOSIN HCL PO; -TERAZOSIN5 MG PO; +VAN500I IV; -VIT B; -XARELTO15 MG PO; -XARELTO20 MG PO; -ZANTAC 300300 M1 PO; -benzapril; -glipizide; -metformin
[2017-03-16] MEDS ORDERED: LEVOFLOXACIN 750 MG/D5W PREMIX 150 ML IV ONE (09:50)
[2017-03-16] MEDS ORDERED: ALBUTEROL SULFATE/IPRATROPIU 3 ML SOL IH ONE (09:50)
[2017-03-16] MEDS ORDERED: DEXTROSE 50% 50 ML SYR IVP ONE ×3 (09:55→10:50)
[2017-03-16] MEDS ORDERED: DEXTROSE 10% 1,000 ML IV SCH (09:55)
[2017-03-16 09:57] VITALS: BP 127/76
--- NOTE | 2017-03-16 10:00 | NUR ---
abg drawn on lr without incident and results given to dr. medrano and pt was put on 2lnc post tx
--- NOTE | 2017-03-16 10:05 | NUR ---
PATIENT PRESENTS TO ED BS FIELD 76,FROM [facility],DENIES SOB,AA&O,CONVERSANT. HX: DM,HTN,PNA,PROSTATE CA,BPH,SEPSIS,UTI,NSTEMI,RT.LEG DVT,SYNCOPE . DENIES N/V/D; SKIN IS PINK/WARM/DRY; AAOX4 WITH EVEN AND STEADY GAIT; LUNGS CLEAR BL; HR EVEN AND REGULAR; PT DENIES ANY FEVER, CP, SOB, OR COUGH AT THIS TIME; PATIENT STATES PAIN OF 0/10 AT THIS TIME; VSS; PATIENT POSITIONED FOR COMFORT; HOB ELEVATED; BEDRAILS UP X2; BED DOWN. ER MD MADE AWARE OF PT STATUS.
[2017-03-16 10:08] LABS: BLOOD GAS PCO2 28.9 mmHg (20-50); BLOOD GAS PH 7.345 (7.35-7.45)
[2017-03-16 10:09] LABS: BLOOD GAS BASE EXCESS -9.2 mmol/L (-2.0-2.0); BLOOD GAS HCO3 15.4 mmol/L; BLOOD GAS PO2 52.7 mmHg
[2017-03-16 10:10] LABS: BLOOD GAS O2 SAT% 83.1 % (92.0-98.5)
[2017-03-16] MEDS ORDERED: VANC1PLA9 IV (10:10)
[2017-03-16 10:15] LABS: HEMATOCRIT 27.5 % (36-52); HEMOGLOBIN 8.6 g/dL (12.0-18.0); MEAN CORPUSCULAR HEMOGLOBIN 27 pg (27-31); MEAN CORPUSCULAR HGB CONC 31 g/dL (33-37); MEAN CORPUSCULAR VOLUME 85 fL (80-94); PLATELET COUNT (AUTO) 332 K/uL (140-450); RED BLOOD CELL COUNT(AUTO) 3.23 MIL/uL (4.20-6.10); RED CELL DISTRIBUTION WIDTH 14.1 % (11.6-13.7); WHITE BLOOD COUNT (AUTO) 26.5 K/uL (4.8-10.8)
[2017-03-16 10:32] LABS: BAND % (MANUAL) 4 % (0-8); LYMPHOCYTES % (MANUAL) 6 % (20-46); MONOCYTES % (MANUAL) 3 % (5-12); NEUTROPHILS % (MANUAL) 87 (43-65)
[2017-03-16 10:37] LABS: PROTHROMBIN TIME 37.9 secs (10.8-13.4)
[2017-03-16 10:40] LABS: ALANINE AMINOTRANSFERASE 15 U/L (12-78); ALBUMIN 1.6 g/dL (3.4-5.0); ALKALINE PHOSPHATASE 158 U/L (46-116); ANION GAP 19.1 (8-16); ASPARTATE AMINOTRANSFERASE 31 U/L (15-37); CALCIUM 7.3 mg/dL (8.5-10.1); CARBON DIOXIDE 21.1 mmol/L (21-32); CHLORIDE 92 mmol/L (98-107); GLUCOSE 217 mg/dL (74-106); SODIUM SERUM 126 mmol/L (136-145); TOTAL BILIRUBIN 0.4 mg/dL (0.0-1.0); TOTAL PROTEIN, SERUM 6.2 g/dL (6.4-8.2); UREA NITROGEN, BLOOD 60 mg/dL (7-18)
[2017-03-16 10:42] LABS: LACTIC ACID 1.5 mmol/L (0.4-2.0)
[2017-03-16] MEDS ORDERED: NACL 0.9% 1,000 ML IV SCH ×3 (10:43→21:00)
[2017-03-16 10:44] LABS: INR 3.9 (0.8-1.2); PARTIAL THROMBOPLASTIN TIME 57.9 secs (22-35.6)
[2017-03-16 10:45] LABS: POTASSIUM 6.2 mmol/L (3.5-5.1)
[2017-03-16] MEDS ORDERED: HYDROcodone/APAP 7.5/325 MG 1 TAB PO PRN (10:45)
[2017-03-16] MEDS ORDERED: ACETAMINOPHEN 325 MG TAB PO PRN (10:45)
[2017-03-16] MEDS ORDERED: DOCUSATE SODIUM 100 MG GELCAP PO PRN ×2 (10:45→18:20)
[2017-03-16] MEDS ORDERED: CALCIUM CHLORIDE 10% 100 MG/ML SYR IVP ONE (10:50)
[2017-03-16] MEDS ORDERED: NACL 0.9% IV SCH (10:50)
[2017-03-16] MEDS ORDERED: INSULIN HUMAN REGULAR IV SCH (10:50)
[2017-03-16] MEDS ORDERED: SODIUM BICARBONATE 8.4% 50 MEQ in DEXTROSE 5% 1,000 ML IV SCH ×2 (10:50→18:20)
[2017-03-16] MEDS ORDERED: ALBUTEROL 0.083% 2.5 MG/3 ML NEBU INH ONE (10:50)
[2017-03-16] MEDS ORDERED: NACL 0.9% 1,000 ML IV ONE (10:55)
[2017-03-16 11:15] LABS: APPEARANCE,URINE CLOUDY (CLEAR); BILIRUBIN,URINE 1+ (NEGATIVE); BLOOD, URINE 3+ (NEGATIVE); COLOR,URINE RED (YELLOW); LEUKOCYTE ESTERASE ,URINE 2+ (NEGATIVE); NITRITE, URINE POSITIVE (NEGATIVE); PH,URINE 6.5 (5.0-9.0); PROTEIN,URINE 3+ (NEGATIVE); UGLUCOSE NEGATIVE (NEGATIVE)
[2017-03-16] MEDS ORDERED: SODIUM POLYSTYRENE 15 GM/60 ML UDBTL PO SCH (11:20)
[2017-03-16] MEDS ORDERED: LACTULOSE 20 GM/30 ML UDC PO SCH (11:20)
[2017-03-16] MEDS ORDERED: SODIUM BICARBONATE 8.4% 50 MEQ/50 ML VIAL ONE (11:21)
[2017-03-16 11:24] LABS: CHOL/HDL RATIO 2.3 (1-4.5); FREE T4 (FREE THYROXINE) 1.47 ng/dL (0.76-1.46); MAGNESIUM 1.6 mg/dL (1.8-2.4); THYROID STIMULATING HORMONE 1.98 uIU/mL (0.34-3.76)
--- NOTE | 2017-03-16 11:25 | NUR ---
Patient will be admitted to care of DR SHANKAR. Admited to TELE. Will go to room 115. Belongings list completed. Report to FELICITAS LACKEY.
[2017-03-16 11:32] LABS: ICTOTEST NEGATIVE (NEGATIVE); RBC,URINE 20-50 /HPF (0-5)
[2017-03-16 11:33] LABS: BACTERIA,URINE 2+ /HPF (None Seen); SQUAMOUS EPITHELIAL CELL,UR 0-3 (FEW) /LPF (0-3 (FEW))
[2017-03-16 11:46] LABS: PHOSPHORUS 9.2 mg/dL (2.5-4.9)
[2017-03-16] MEDS ORDERED: INSULIN HUMAN REGULAR 100 UNITS/ML 10 ML VIAL IVP ONE (12:00)
[2017-03-16] MEDS ORDERED: SODIUM BICARBONATE 8.4% PFS 50 MEQ/50 ML SYR IVP ONE ×2 (12:00→22:30)
[2017-03-16 12:23] VITALS: BP 146/63
--- NOTE | 2017-03-16 12:23 | NUR ---
PT AWAKE AND ALERT, NO SIGNS OF ACUTE DISTRESS, BREATHING EVEN AND UNLABORED BILATERALLY ON OXYGEN 2L VIA NC, BOWEL SOUNDS ACTIVE IN ALL 4 QUADRANTS, SKIN ECCHYMOSIS ON BILATERAL UPPER EXTREMITIES WITH 2 SMALL SCABS ON RIGHT UPPER ANTERIOR ARM, BOWEL AND BLADDER INCONTINENCE WITH STEPHEN CATHETER IN PLACE, IV PATENT AND INFUSING NO REDNESS OR SWELLING AROUND INSERTION SITE, BED ALARM ON AND IN LOW SEMI MAKI'S POSITION WITH BILATERAL HALF SIDE RAILS UP, CALL LIGHT WITHIN REACH.
[2017-03-16] MEDS: MORPHINE SULFATE 2 MG/ML SYR IVP PRN (15:13)
[2017-03-16 16:00] VITALS: BP 138/75
--- NOTE | 2017-03-16 16:00 | NUR ---
BS CHECKED, 110 NO COVERAGE GIVEN. AWARE.
[2017-03-16] MEDS: ONDANSETRON 4 MG/2 ML VIAL IM/IVP PRN ×2 (16:49→20:51)
[2017-03-16] MEDS ORDERED: DEXTROSE 50% 50 ML SYR IVP PRN (18:00)
[2017-03-16] MEDS ORDERED: INSULIN HUMAN REGULAR 100 UNITS/ML 10 ML VIAL SUBQ ONE (18:20)
[2017-03-16] MEDS ORDERED: ALBUTEROL SULFATE/IPRATROPIU 3 ML SOL IH PRN (18:20)
[2017-03-16] MEDS: ALBUTEROL SULFATE/IPRATROPIU 3 ML SOL IH SCH ×2 (19:22→23:43)
--- NOTE | 2017-03-16 19:26 | NUR ---
PT AWAKE AND ALERT, NO SIGNS OF ACUTE DISTRESS, BREATHING EVEN AND UNLABORED. BED IN LOW POSITION WITH BILATERAL HALF SIDE RAILS UP, CALL LIGHT WITHIN REACH. GAVE REPORT TO TRIMMING CUTTER NURSE FOR CONTINUITY OF CARE.
--- NOTE | 2017-03-16 19:30 | NUR ---
RECEIVED REPORT FROM DAY RN AT BEDSIDE, PATIENT IS RESTING IN BED WITH FAMILY AT BEDSIDE, PATIENT IS AAOX3 WITH EPISODES OF CONFUSION. PATIENT IS RESTLESS STATING HIS THROAT IS DRY AND FREQUENTLY ASKS FOR SIPS OF WATER OR ICE CHIPS. NO SOB OR SIGN OF DISTRESS, PATIENT ON OXYGEN VIA NC 2L. IV TO RIGHT AC PATENT AND INTACT. NOTED ECCHYMOSIS TO BUE WITH SCABS. STEPHEN WITH DANG RED OUTPUT NOTED. PATIENT STATING HE IS UNCOMFORTABLE, WILL REPOSITION. DISCUSSED PLAN OF CARE WITH PATIENT, PATIENT VERBALIZED UNDERSTANDING, SAFETY MEASURES CHECKED, CALL LIGHT WITHIN REACH. WILL CONTINUE TO MONITOR.
[2017-03-16 20:00] VITALS: BP 151/79
[2017-03-16 20:13] LABS: ANION GAP 21.4 (8-16); CALCIUM 7.5 mg/dL (8.5-10.1); CARBON DIOXIDE 18.2 mmol/L (21-32); CHLORIDE 95 mmol/L (98-107); POTASSIUM 5.6 mmol/L (3.5-5.1); SODIUM SERUM 129 mmol/L (136-145); UREA NITROGEN, BLOOD 57 mg/dL (7-18)
[2017-03-16 20:19] LABS: CREATININE 6.9 mg/dL (0.6-1.3); GLUCOSE 47 mg/dL (74-106)
--- NOTE | 2017-03-16 20:30 | NUR ---
RECEIVED CALL FROM LAB CRITICAL LOW BS, CHECKED BS 44, ADMINISTERED D50 WILL REASSESS BLOOD SUGAR. PATIENT ASYMPTOMATIC, TALKING AND RESTING IN BED, WILL CONTINUE TO CLOSELY MONITOR.
[2017-03-16] MEDS ORDERED: SODIUM POLYSTYRENE 15 GM/60 ML UDBTL ONE (21:06)
--- NOTE | 2017-03-16 21:10 | NUR ---
RECEIVED CALL FROM DR CHAN, GAVE UPDATE ON PATIENT AND RECEIVED ORDERS FOLLOWS: GIVE D5% 0.45%NS WITH 1 AMPULE FO BICARBONATE @120CC/H AND CHANGE PATIENTS FLUIDS TO D5 0.45 NS @120CC/H. AT 0000 GIVE 1 DOSE OF LASIX 80MG IVP AND FLUSH STEPHEN WITH 250 CC OF NORMAL SALINE Q4H PRN FOR GROSSLY HEMATURIA. WILL FOLLOW UP WITH ORDERS.
[2017-03-16] MEDS: BLOOD GLUCOSE MONITORING 1 DEV DEV FS SCH (21:28)
[2017-03-16] MEDS: CALCIUM CARB/VIT-D 500 MG/200 IU 1 TAB PO SCH (21:28)
[2017-03-16] MEDS: SODIUM POLYSTYRENE 15 GM/60 ML UDBTL PO SCH (21:28)
[2017-03-16] MEDS: DEXT 5% / NACL 0.45% 1,000 ML IV SCH (21:55)
[2017-03-16] MEDS ORDERED: MECLIZINE 25 MG TAB PO PRN (22:00)
[2017-03-16] MEDS ORDERED: SODIUM BICARBONATE 8.4% 50 MEQ in DEXT 5% / NACL 0.45% 1,000 ML IV ONE (22:05)
--- NOTE | 2017-03-16 22:05 | NUR ---
IRRIGATED STEPHEN WITH 250 CC NORMAL SALINE, NO INCREASED OUTPUT NOTED. WILL CONTINUE TO MONITOR.
--- NOTE | 2017-03-16 23:15 | NUR ---
PERFORMED BLADDER SCAN, RESULTED URINE VOLUME >999ML. BLADDER DOES NOT APPEAR TO BE DISTENDED.
[2017-03-16 23:44] LABS: ANION GAP 19.3 (8-16); CALCIUM 7.3 mg/dL (8.5-10.1); CARBON DIOXIDE 20.9 mmol/L (21-32); CHLORIDE 95 mmol/L (98-107); GLUCOSE 87 mg/dL (74-106); POTASSIUM 5.2 mmol/L (3.5-5.1); SODIUM SERUM 130 mmol/L (136-145); UREA NITROGEN, BLOOD 56 mg/dL (7-18)
[2017-03-16 23:46] LABS: CREATININE 6.7 mg/dL (0.6-1.3)
[2017-03-17] VITALS: BP 148/53
[2017-03-17] MEDS ORDERED: FUROSEMIDE 100 MG/10 ML VIAL IVP ONE
--- NOTE | 2017-03-17 | NUR ---
VITAL SIGNS STABLE, NO SOB OR SIGN OF DISTRESS, PATIENT STILL COMPLAINT OF DRY MOUTH AND THROAT, CONTINUES TO SIP WATER, PATIENT HAVING MULTIPLE BM AFTER ADMINISTRATION OF KAYEXALATE. PATIENT RESTLESS, SPOKE TO DR ARELLANO, SUGGESTED MEDICINE TO RELAX PATIENT,WILL FOLLOW UP WITH ORDERS.
[2017-03-17] MEDS: SODIUM POLYSTYRENE 15 GM/60 ML UDBTL PO SCH ×3 (00:21→20:58)
[2017-03-17] MEDS: MORPHINE SULFATE 2 MG/ML SYR IVP PRN ×2 (00:22→10:26)
--- NOTE | 2017-03-17 01:20 | NUR ---
CLARIFIED WITH DR RICO REGARDING ORDER FOR SLEEPING PILL. OKAY BY TO GIVE RIGHT NOW.
[2017-03-17] MEDS ORDERED: ZOLPIDEM 5 MG TAB ONE (01:40)
--- NOTE | 2017-03-17 02:30 | NUR ---
PATIENT CONTINUES TO REST AWAKE IN BED, STILL COMPLAINT OF DRY THROAT, HAVING MULTIPLE BMS. CALL LIGHT WITHIN REACH. WILL CONTINUE TO CLOSELY MONITOR.
[2017-03-17] MEDS: ALBUTEROL SULFATE/IPRATROPIU 3 ML SOL IH SCH ×6 (03:26→23:59)
[2017-03-17 04:00] VITALS: BP 139/72
--- NOTE | 2017-03-17 04:20 | NUR ---
VITAL SIGNS STABLE, NO SIGN OF DISTRESS, PATIENT RESTING AWAKE IN BED, WILL CONTINUE TO MONITOR
[2017-03-17] MEDS: DEXT 5% / NACL 0.45% 1,000 ML IV SCH ×2 (06:15→18:30)
[2017-03-17 06:44] LABS: BASOPHILS % (AUTO) 0.1 % (0.0-2.0); EOSINOPHILS # (AUTO) 0.3 K/uL (0-0.4); EOSINOPHILS % (AUTO) 1.4 % (0.0-4.0); HEMATOCRIT 24.3 % (36-52); HEMOGLOBIN 8.1 g/dL (12.0-18.0); LYMPHOCYTES # (AUTO) 0.6 K/uL (2.0-11.5); LYMPHOCYTES % (AUTO) 3.1 % (20.5-51.1); MEAN CORPUSCULAR HEMOGLOBIN 29 pg (27-31); MEAN CORPUSCULAR HGB CONC 33 g/dL (33-37); MEAN CORPUSCULAR VOLUME 86 fL (80-94); MONOCYTES # (AUTO) 0.9 K/uL (0.8-1.0); MONOCYTES % (AUTO) 4.8 % (1.7-9.3); NEUTROPHILS # (AUTO) 16.5 K/uL (1.8-7.7); PLATELET COUNT (AUTO) 321 K/uL (140-450); RED BLOOD CELL COUNT(AUTO) 2.83 MIL/uL (4.20-6.10); RED CELL DISTRIBUTION WIDTH 14.3 % (11.6-13.7); WHITE BLOOD COUNT (AUTO) 18.3 K/uL (4.8-10.8)
--- NOTE | 2017-03-17 06:45 | NUR ---
CT TO BED HELD OFF D/T PATIENT HAVING FREQUENT BMS. WILL ENDORSE TO DAY NURSE TO CALL CT WHEN PATIENT IS READY.
[2017-03-17] MEDS: BLOOD GLUCOSE MONITORING 1 DEV DEV FS SCH ×4 (06:48→20:58)
[2017-03-17 07:15] LABS: ANION GAP 20.7 (8-16); CALCIUM 7.3 mg/dL (8.5-10.1); CARBON DIOXIDE 19.4 mmol/L (21-32); CHLORIDE 95 mmol/L (98-107); GLUCOSE 140 mg/dL (74-106); POTASSIUM 5.1 mmol/L (3.5-5.1); SODIUM SERUM 130 mmol/L (136-145); UREA NITROGEN, BLOOD 54 mg/dL (7-18)
--- NOTE | 2017-03-17 07:20 | NUR ---
PHYSICAL LABORATORY ASSISTANT AT BEDSIDE FOR PATIENT PHYSICAL HYGIENE AND REPOSITION SOFTWARE ENGINEER KERNEL TO ATTEMPT HHN THERAPY AT A LATER TIME
[2017-03-17 07:24] LABS: MAGNESIUM 1.4 mg/dL (1.8-2.4)
--- NOTE | 2017-03-17 07:30 | NUR ---
ENDORSED PATIENT TO DAY RN AT BEDSIDE, PATIENT IN STABLE CONDITION
--- NOTE | 2017-03-17 07:32 | NUR ---
AWAKE AND ALERT RESPONSIVE PATIENT C/O NASAL AND ORALPHARYNGEAL DRYNESS POST HHN THERAPY ADDED HUMIDIFIER
--- NOTE | 2017-03-17 07:35 | NUR ---
RECEIVED REPORT FROM FELICITAS CHEUNG. PT IS A/OX3, BEDREST, IV IS ON THE RT AC, PATENT, INTACT, INFUSING WELL, SKIN IS INTACT, NO S/S OF RESPIRATORY DISTRESS OR DISCOMFORT NOTED, STEPHEN CATHETER IS IN PLACE, 250 ML IN STEPHEN BAG, URINE, BRIGHT RED, PT IS ON 02 2L NC, SAFETY/FALL PRECAUTIONS ARE IN PLACE, DISCUSSED PLAN OF CARE WITH PT, PT VERBALIZED UNDERSTANDING, CALL LIGHT IS WITHIN REACH, WILL CONTINUE TO MONITOR.
[2017-03-17 08:00] VITALS: BP 124/78
[2017-03-17] MEDS ORDERED: SODIUM POLYSTYRENE 15 GM/60 ML UDBTL PR SCH (08:00)
[2017-03-17 08:31] LABS: CREATININE 6.8 mg/dL (0.6-1.3)
[2017-03-17 08:37] LABS: PROTHROMBIN TIME 48.8 secs (10.8-13.4)
--- NOTE | 2017-03-17 08:47 | NUR ---
PATIENT HAS BEEN SCREENED AND CATEGORIZED MODERATE NUTRITION RISK. PATIENT WILL BE SEEN WITHIN 3-5 DAYS OF ADMISSION. 03/18/17-03/20/[address]
[2017-03-17] MEDS: BICALUTAMIDE 50 MG TAB PO SCH (09:00)
[2017-03-17] MEDS ORDERED: BENAZEPRIL 20 MG TAB PO SCH (09:00)
[2017-03-17] MEDS: CALCIUM CARB/VIT-D 500 MG/200 IU 1 TAB PO SCH ×2 (09:08→20:58)
[2017-03-17] MEDS: TAMSULOSIN 0.4 MG CAP PO SCH (09:10)
[2017-03-17] MEDS: VIT-B COMP/VIT-C/FOLIC ACID 1 TAB PO SCH (09:10)
--- NOTE | 2017-03-17 09:30 | NUR ---
PT RESTING IN BED, NO S/S OF RESPIRATORY DISTRESS OR DISCOMFORT NOTED, CALL LIGHT IS WITHIN REACH WILL CONTINUE TO MONITOR.
[2017-03-17 09:37] LABS: NEUTROPHILS % (AUTO) 90.6 % (42.2-75.2)
[2017-03-17 09:39] LABS: PHOSPHORUS 9.4 mg/dL (2.5-4.9)
--- NOTE | 2017-03-17 10:30 | NUR ---
PT OFF UNIT TO HAVE CT-SCAN OF PELVIS DONE. PT LEFT IN STABLE CONDITION.
--- NOTE | 2017-03-17 10:50 | NUR ---
PT BACK ON UNIT FROM RADIOLOGY, NO S/S OF RESPIRATORY DISTRESS OR DISCOMFORT NOTED, CALL LIGHT WITHIN REACH WILL CONTINUE TO MONITOR.
[2017-03-17] MEDS ORDERED: MAG SULF 2000 MG/WATER PREMIX 50 ML IV SCH (11:00)
--- NOTE | 2017-03-17 11:47 | NUR ---
[place] [facility] [place] [facility] GAVE ORAL REPORT. SHE SAID FOR HOSPICE CAN USE ANYONE WE WANT, IT REVERTS BACK TO MEDICARE. [place] [facility] [phone] PHONE TRACY [phone]
--- NOTE | 2017-03-17 11:55 | NUR ---
RECEIVED CRITICAL RADIOLOGY REPORT VIA FAX, WENT AHEAD AND HANDED A COPY TO DR. PETERSEN.
[2017-03-17 12:00] VITALS: BP 147/68
--- NOTE | 2017-03-17 12:04 | NUR ---
SS NOTE: I SPOKE WITH PT'S , DAYANA TO SEE IF SHE HAS A PREFERENCE WITH A SPECIFIC HOSPICE COMPANY. SHE STATED THAT SHE DOES NOT HAVE A PREFERENCE. PT'S INFORMATION SENT TO [facility], RECEIVED FAX CONFIRMATION I SPOKE WITH KEVIN FROM [facility] AND SHE STATED THAT THEIR BOOK SHELVER IS REVIEWING PT'S INFORMATION AT THIS TIME.
--- NOTE | 2017-03-17 12:22 | NUR ---
DEFLATED THE PATIENT'S STEPHEN CATHETER BALLOON AND INSERTED STEPHEN FURTHER IN, 8 CM, STEPHEN CATHETER BALLOON RE INFLATED, PT HAD 1600ML OF URINE OUTPUT, PT TOLERATED WELL. Addendum: 03/17/17 at 1226 by Felicia Wells RN 1600 URINE OUTPUT IN STEPHEN BAG, URINE COLOR IS RED, SOME SEDIMENT NOTED, NO ODOR.
[2017-03-17] MEDS ORDERED: LACTOBACILLUS RHAMNOSUS GG 1 EACH CAP PO SCH (13:00)
--- NOTE | 2017-03-17 13:50 | NUR ---
DR. PETERSEN IN PATIENT'S ROOM SPEAKING TO PATIENT'S SON (LIZZIE).
[2017-03-17] MEDS: PIPER/TAZO 2.25GM/D5W PREMIX 50 ML IV SCH ×2 (14:45→20:59)
--- NOTE | 2017-03-17 14:45 | NUR ---
SS NOTE: I SPOKE WITH KEVIN FROM [facility] ([phone]). SHE STATED THAT SHE SPOKE WITH PT'S , DAYANA AND SHE WILL SIGN HOSPICE CONSENTS TOMORROW. KEVIN ALSO STATED THAT ONCE CONSENTS ARE SIGNED, SHE WILL MAKE ARRANGEMENTS FOR EQUIPMENT AND TRANSPORTATION.
[2017-03-17 16:00] VITALS: BP 121/60
--- NOTE | 2017-03-17 16:00 | NUR ---
PT IS RESTING IN BED, AND DAUGHTER ARE AT PT BEDSIDE.
[2017-03-17] MEDS: INSULIN LISPRO SLIDING SCALE 100 UNITS/ML VIAL SUBQ PRN (16:10)
--- NOTE | 2017-03-17 17:07 | NUR ---
[facility] THERAPY LATE DUE UNIVERSAL BRANCH CONSULTANT ASSIST IN ER #[id number]
--- NOTE | 2017-03-17 17:23 | NUR ---
AWAKE AND ALERT ENCOURAGED PATIENT WITH ACKNOWLEDGEMENT TO USE INCENTIVE SPIROMETRY EVERY 1 HOUR WHILE AWAKE
--- NOTE | 2017-03-17 18:00 | NUR ---
PT SLEEPING AT THIS TIME, STEPHEN BAG EMPTIED OUT, URINE OUTPUT 2000ML, DANG RED.
--- NOTE | 2017-03-17 19:25 | NUR ---
ENDORSED PT TO FELICITAS GUILLEN. FOR CONTINUITY OF CARE, PT IS STABLE AT THIS TIME.
--- NOTE | 2017-03-17 19:30 | NUR ---
RECEIVED REPORT FROM DAYSHIFT NURSE. PT RESTING IN BED, AOX3, ABLE TO VERBALIZE NEEDS. PT DENIES CP, SOB OR S/S OF ACUTE DISTRESS. PT ON 2L O2 NC. SITE WORKER IN PLACE. STEPHEN IN PLACE, DRAINING CLEAR DANG URINE. MULTIPLE SCABS AND ECCHYMOSIS NOTED ON BUE. IV ACCESS ASYMPTOMATIC, PATENT AND INTACT. IVF INFUSING WELL. DISCUSSED AND REVIEWED PLAN OF CARE WITH PT, PT VERBALIZES UNDERSTANDING. WILL CONTINUE TO REINFORCE TEACHING. SAFETY MEASURES ENSURED. CALL LIGHT WITHIN REACH. WILL CONTINUE TO MONITOR.
[2017-03-17 20:00] VITALS: BP 119/66
[2017-03-17] MEDS ORDERED: ZOLPIDEM 5 MG TAB PO SCH (21:00)
[2017-03-17] MEDS ORDERED: ATORVASTATIN 20 MG TAB PO SCH (21:00)
--- NOTE | 2017-03-17 21:00 | NUR ---
ADMINISTERED DUE MEDICATIONS WITH EDUCATION. PT STATED "OKAY." PT TOLERATED MEDS WELL ASSISTED PT WITH ADLS. SAFETY MEASURES ENSURED. CALL LIGHT WITHIN REACH. WILL CONTINUE TO MONITOR.
--- NOTE | 2017-03-17 23:05 | NUR ---
DR RICO MADE AWARE OF PTT 54.6, NO ORDERS AT THIS TIME. EMPTIED STEPHEN CATH, 1750ML CLEAR DANG URINE. CONDITION STABLE. SAFETY MEASURES ENSURED. CALL LIGHT WITHIN REACH. WILL CONTINUE TO MONITOR.
[2017-03-18] VITALS: BP 105/55
--- NOTE | 2017-03-18 01:00 | NUR ---
CONDITION STABLE. ASSISTED PT WITH ADLS. PT TOLERATED WELL. SAFETY MEASURES ENSURED.
[2017-03-18] MEDS: ALBUTEROL SULFATE/IPRATROPIU 3 ML SOL IH SCH ×4 (03:25→15:31)
--- NOTE | 2017-03-18 03:30 | NUR ---
PT ABLE TO USE INCENTIVE SPIROMETER WELL, 11 TIMES, 1500ML.
[2017-03-18 04:00] VITALS: BP 137/71
--- NOTE | 2017-03-18 04:00 | NUR ---
CONDITION STABLE. NO S/S OF ACUTE DISTRESS. ALL NEEDS MET. SAFETY MEASURES ENSURED. CALL LIGHT WITHIN REACH. WILL CONTINUE TO MONITOR.
[2017-03-18] MEDS: PIPER/TAZO 2.25GM/D5W PREMIX 50 ML IV SCH ×2 (04:25→12:44)
[2017-03-18] MEDS: BLOOD GLUCOSE MONITORING 1 DEV DEV FS SCH ×2 (06:31→11:53)
[2017-03-18] MEDS: INSULIN LISPRO SLIDING SCALE 100 UNITS/ML VIAL SUBQ PRN ×2 (06:34→12:39)
[2017-03-18 06:45] LABS: BASOPHILS % (AUTO) 0.2 % (0.0-2.0); EOSINOPHILS # (AUTO) 0.3 K/uL (0-0.4); EOSINOPHILS % (AUTO) 1.9 % (0.0-4.0); HEMOGLOBIN 8.2 g/dL (12.0-18.0); LYMPHOCYTES # (AUTO) 0.7 K/uL (2.0-11.5); LYMPHOCYTES % (AUTO) 4.9 % (20.5-51.1); MEAN CORPUSCULAR HEMOGLOBIN 28 pg (27-31); MEAN CORPUSCULAR HGB CONC 33 g/dL (33-37); MEAN CORPUSCULAR VOLUME 86 fL (80-94); MONOCYTES # (AUTO) 0.8 K/uL (0.8-1.0); MONOCYTES % (AUTO) 5.8 % (1.7-9.3); NEUTROPHILS # (AUTO) 11.9 K/uL (1.8-7.7); NEUTROPHILS % (AUTO) 87.2 % (42.2-75.2); PLATELET COUNT (AUTO) 369 K/uL (140-450); RED BLOOD CELL COUNT(AUTO) 2.89 MIL/uL (4.20-6.10); RED CELL DISTRIBUTION WIDTH 14.4 % (11.6-13.7); WHITE BLOOD COUNT (AUTO) 13.7 K/uL (4.8-10.8)
[2017-03-18 07:09] LABS: INR 4.3 (0.8-1.2); PROTHROMBIN TIME 41.8 secs (10.8-13.4)
--- NOTE | 2017-03-18 07:15 | NUR ---
RECEIVED PATIENT REPORT AT BEDSIDE. PATIENT AWAKE, ALERT AND ORIENTED. PATIENT CURRENTLY RECEIVING BREATHING TX. IV LINE NOTED TO THE RIGHT AC WITH IVF INFUSING WELL. STEPHEN CATHETER IN PLACE, DRAINING CLEAR YELLOW URINE. PATIENT ON TELE MONITORING. BED LOWERED WITH CALL LIGHT WITHIN REACH. WILL CONTINUE TO MONITOR
--- NOTE | 2017-03-18 07:24 | NUR ---
CONDITION STABLE. ENDORSED PLAN OF CARE TO DAYSHIFT NURSE.
[2017-03-18 08:00] VITALS: BP 120/61
[2017-03-18 08:24] LABS: MAGNESIUM 1.8 mg/dL (1.8-2.4); PHOSPHORUS 6.1 mg/dL (2.5-4.9)
[2017-03-18 08:25] LABS: ANION GAP 15.6 (8-16); CHLORIDE 106 mmol/L (98-107); CREATININE 3.4 mg/dL (0.6-1.3); GLUCOSE 217 mg/dL (74-106); POTASSIUM 3.6 mmol/L (3.5-5.1); SODIUM SERUM 143 mmol/L (136-145); UREA NITROGEN, BLOOD 31 mg/dL (7-18)
[2017-03-18] MEDS ORDERED: LACTOBACILLUS RHAMNOSUS GG 1 EACH CAP PO SCH (09:00)
[2017-03-18] MEDS: VIT-B COMP/VIT-C/FOLIC ACID 1 TAB PO SCH (09:37)
[2017-03-18] MEDS: CALCIUM CARB/VIT-D 500 MG/200 IU 1 TAB PO SCH (09:37)
[2017-03-18] MEDS: TAMSULOSIN 0.4 MG CAP PO SCH (09:37)
[2017-03-18] MEDS: BICALUTAMIDE 50 MG TAB PO SCH (09:37)
[2017-03-18 10:00] LABS: CALCIUM 7.8 mg/dL (8.5-10.1)
--- NOTE | 2017-03-18 10:14 | NUR ---
PATIENT AWAKE IN BED, WATCHING TELEVISION. NO S/S OF DISTRESS NOTED
--- NOTE | 2017-03-18 10:56 | NUR ---
SS NOTE: PER KEVIN FROM [facility] ([phone]), PT'S SIGNED CONSENTS AND SHE WILL CALL BACK ONCE TRANSPORT HAS BEEN ARRANGED.
[2017-03-18 12:00] VITALS: BP 137/76
[2017-03-18] MEDS: DEXT 5% / NACL 0.45% 1,000 ML IV SCH (12:43)
--- NOTE | 2017-03-18 13:10 | NUR ---
SS NOTE: PER KEVIN FROM [facility] ([phone]), TRANSPORT WILL BE HERE IN 2 HOURS TO BOAT OUTFITTING SUPERVISOR PT. FELICITAS KNIGHT.
--- NOTE | 2017-03-18 13:20 | NUR ---
MADE DR SAAVEDRA AWARE THAT PATIENT WILL BE PICKED UP BY [facility] IN 2 HOURS
[2017-03-18] MEDS ORDERED: LEVO750T2 PO (15:30)
[2017-03-18] MEDS ORDERED: LACT1.4C PO (15:30)
[2017-03-18] MEDS ORDERED: CLIN300C2 PO (15:31)
--- NOTE | 2017-03-18 16:20 | NUR ---
PATIENT DISCHARGED TO HOME WITH HOSPICE CARE. PATIENT PICKED UP BY [facility]. DISCHARGE INSTRUCTIONS AND DISCHARGE PRESCRIPTIONS GIVEN. PATIENT'S CARETAKERS VERBALIZED UNDERSTANDING. IV LINE DISCONTINUED. STEPHEN CATHETER DISCONTINUED ORDERED. TELE LEADS TAKEN OFF. PATIENT'S SIGNED ALL OF THE PATIENT'S DISCHARGE PAPERS. PATIENT LEFT WITH ALL HIS BELONGINGS AND DISCHARGE PAPERS. PATIENT LEFT IN STABLE CONDITION
== END 2017-03-18 16:20 | disposition hospice, home (50) | DRG 871 ==
LOC: MED 09:35 → MTU 11:07
PROVIDERS: ADMIT Family Medicine; ATTEND Family Medicine
DX: A41.9 Sepsis, unspecified organism (principal); J69.0 Pneumonitis due to inhalation of food and vomit; G93.41 Metabolic encephalopathy; N17.0 Acute kidney failure with tubular necrosis; E43 Unspecified severe protein-calorie malnutrition; J96.01 Acute respiratory failure with hypoxia; N13.30 Unspecified hydronephrosis; N39.0 Urinary tract infection, site not specified; I82.511 Chronic embolism and thrombosis of right femoral vein; D68.69 Other thrombophilia; N13.9 Obstructive and reflux uropathy, unspecified; E11.22 Type 2 diabetes mellitus with diabetic chronic kidney disease; E11.649 Type 2 diabetes mellitus with hypoglycemia without coma; E11.51 Type 2 diabetes mellitus with diabetic peripheral angiopathy without gangrene; K21.9 Gastro-esophageal reflux disease without esophagitis; F32.9 Major depressive disorder, single episode, unspecified; D64.9 Anemia, unspecified; E87.5 Hyperkalemia; F03.90 Unspecified dementia, unspecified severity, without behavioral disturbance, psychotic disturbance, mood disturbance, and anxiety; C61 Malignant neoplasm of prostate; I13.10 Hypertensive heart and chronic kidney disease without heart failure, with stage 1 through stage 4 chronic kidney disease, or unspecified chronic kidney disease; N18.9 Chronic kidney disease, unspecified; E83.51 Hypocalcemia; I25.10 Atherosclerotic heart disease of native coronary artery without angina pectoris; I35.0 Nonrheumatic aortic (valve) stenosis; Z79.899 Other long term (current) drug therapy; Z79.4 Long term (current) use of insulin; Z71.3 Dietary counseling and surveillance; Z68.25 Body mass index [BMI] 25.0-25.9, adult; Z86.73 Personal history of transient ischemic attack (TIA), and cerebral infarction without residual deficits
CPT/HCPCS: 36415; 36600; 71010; 80048; 80053; 81001; 82150; 82550; 82553; 82803; 82948; 83036; 83605; 83690; 83735; 83874; 83880; 84100; 84439; 84443; 84480; 84484; 85025; 85610; 85730; 87040; 87081; 87086; 93005; 94640; 96365; 96366; 96375; 99291; J1815; J1940; J1956; J2270; J2405; J2543; J3475; J3490; J7030; J7620; Q0092